=== PATIENT | female | born 1960 | race Caucasian/White ===

== ENCOUNTER → 2016-07-10 | Outpatient (CLI) | payer MEDICARE ==
--- NOTE | 2016-07-11 08:39 | RAD ---
DATE: July 10, 2016 EXAM: DIGITAL DIAGNOSTIC RT, BREAST RIGHT HISTORY: Follow-up of right breast cyst COMPARISON: January 16, 2016 right breast sonogram in diagnostic mammogram. This study was interpreted with the benefit of Computerized Aided Detection (CAD ). Diagnostic right-sided mammogram FINDINGS: The breast parenchyma is heterogeneously dense. There is a small nodule of the 6 clock position of the right breast which is stable. The breast parenchymal pattern is stable and no new clustering of pleomorphic microcalcifications are evident. Right breast sonography: High-resolution sonography of the 6:00 position of the right breast demonstrates a cyst measuring 7 mm in size. This is located 3 cm from the nipple. This corresponds to the same cyst seen previously and is unchanged in size. A few small internal echoes or debris are seen. Small satellite cyst is seen adjacent to it and is smaller in size in comparison to the previous study. In addition, 5 cm from the nipple at the 6 by position, a hypoechoic nodule is seen measuring 10 mm in size. There is mild sound through transmission. No corresponding mammographic abnormality is seen. This most likely represents a crenated cluster of cysts but recommend a 3 month follow-up sonogram of the right breast. IMPRESSION: Stable mammographic nodule of the 6 clock position of the right breast which corresponds to a cyst which is unchanged in size. However, the smaller satellite appendage like cyst has decreased in size sonographically. Recommend bilateral mammography in 6 months. There is another hypoechoic nodule at the 6:00 position of the right breast seen sonographically which measures 10 mm. This may represent a crenated cluster of cysts. Recommend 3 month follow-up sonogram of the right breast. BI-RADS CATEGORY: 3 PROBABLE BENIGN-SHORT TERM F/U RECOMMENDED FOLLOW-UP: 3 month sonogram of the right breast. Bilateral mammography in 6 months. PQRS compliance statement: Patient information was entered into a reminder system with a target due date 10/09/2016 for the next imaging study. Mammography is a sensitive method for finding small breast cancers, but it does not detect them all and is not a substitute for careful clinical examination. A negative mammogram does not negate a clinically suspicious finding and should not result in delay in biopsying a clinically suspicious abnormality. "Our facility is accredited by the [employer] Mammography Program." LOSD
== END | disposition home or self-care (01) ==
LOC: US 13:21
PROVIDERS: ATTEND Family Medicine
DX: R92.8 Other abnormal and inconclusive findings on diagnostic imaging of breast (principal)
CPT/HCPCS: 76641; G0206; 77065

== ENCOUNTER → 2016-10-14 | Outpatient (CLI) | payer MEDICARE ==
--- NOTE | 2016-10-14 13:05 | RAD ---
Indication 3 month follow-up. Targeted ultrasound of the right breast was performed. Comparison is made to an examination 07/10/2016. There is a well-defined hypoechoic 6 mm mass at the 6:00 position of the breasts 6 cm from the nipple similar to the previous exam compatible with a cyst. Slightly deeper at the 6:00 position, 5 cm from the nipple, is a heterogeneous mass measuring approximately 1 cm again unchanged in size or appearance. Follow-up mammography is suggested in December of this year. Follow-up ultrasound also advised. If the ultrasound findings are unchanged than a follow-up examination in January 17, 2018 is suggested. BI-RADS 3. Probably benign
== END | disposition home or self-care (01) ==
LOC: US 12:02
PROVIDERS: ATTEND Family Medicine
DX: R92.8 Other abnormal and inconclusive findings on diagnostic imaging of breast (principal)
CPT/HCPCS: 76641

== ENCOUNTER → 2017-01-14 | Outpatient (CLI) | payer MEDICARE ==
--- NOTE | 2017-01-14 09:20 | RAD ---
DATE: 01/14/2017 EXAM: DIGITAL DIAGNOSTIC BILATERAL HISTORY: Screening and follow-up COMPARISON: Screening examination 01/02/2016. Note is made of the diagnostic examinations targeted to the right breast 01/16/2016 and 07/10/2016. Note is additionally made of 3. Ultrasound examinations over the last year targeted to the right breast. This study was interpreted with the benefit of Computerized Aided Detection (CAD). FINDINGS: Breast Density: HETERO The breast parenchyma Is heterogeneiously dense, which could reduce sensitivity of mammography. Breast parenchyma level C. There has been little change compared to the previous screening exam. Well-defined small mass in the right breast appears unchanged IMPRESSION: Benign findings BI-RADS CATEGORY: 2 BENIGN FINDING(S) RECOMMENDED FOLLOW-UP: 12M 12 MONTH FOLLOW-UP PQRS compliance statement: Patient information was entered into a reminder system with a target due date 01/14/2018 for the next mammogram. Mammography is a sensitive method for finding small breast cancers, but it does not detect them all and is not a substitute for careful clinical examination. A negative mammogram does not negate a clinically suspicious finding and should not result in delay in biopsying a clinically suspicious abnormality. "Our facility is accredited by the [employer] Mammography [employer]."
== END | disposition home or self-care (01) ==
LOC: MAMMO 08:52
PROVIDERS: ATTEND Family Medicine
DX: Z09 Encounter for follow-up examination after completed treatment for conditions other than malignant neoplasm (principal); N63.0 Unspecified lump in unspecified breast; Z12.31 Encounter for screening mammogram for malignant neoplasm of breast
CPT/HCPCS: G0204; 77066

== ENCOUNTER → 2018-01-05 | Outpatient (CLI) | payer MEDICARE ==
[2017-09-10 09:09] VITALS: BP 124/63
[~2018-01-05] MED LIST: ATOR10TA60 PO; C,E,1CAP PO; CHOL500016 PO; FENO134C PO; FLUO40CA2 PO; IRON1TAB30 PO; LEVO25TA4 PO; LEVO75TA5 PO; LITH300C PO; METF500T16 PO; METH10TA2 PO; OMEG1CAP30 PO; OXYB10TA PO; PROAIR HFA8.5 GM INH; QUET200T79 PO; TRAZ150T49 PO; VALS160T3 PO; VALS40TA2 PO; VENL150T PO
--- NOTE | 2018-01-05 08:24 | RAD ---
DATE: 01/05/2018 EXAM: DIGITAL SCREEN BILAT W/CAD HISTORY: Routine screening COMPARISON: 01/14/2017 This study was interpreted with the benefit of Computerized Aided Detection (CAD). Breast Density: SCATTERED The breast parenchyma shows scattered fibroglandular densities. Breast parenchyma level B. FINDINGS: A smooth 9-10 mm nodule is again noted at the 6:00 location in the right breast. It is unchanged since previous studies dating back to 01/02/2016. No new or enlarging breast density is seen. Minimal benign type calcification is present. No suspicious microcalcifications have developed. IMPRESSION: Stable mammograms without evidence of malignancy. BI-RADS CATEGORY: 2 BENIGN FINDING(S) RECOMMENDED FOLLOW-UP: 12M 12 MONTH FOLLOW-UP PQRS compliance statement: Patient information was entered into a reminder system with a target due date for the next mammogram. Mammography is a sensitive method for finding small breast cancers, but it does not detect them all and is not a substitute for careful clinical examination. A negative mammogram does not negate a clinically suspicious finding and should not result in delay in biopsying a clinically suspicious abnormality. "Our facility is accredited by the [employer] Mammography [employer]."
== END | disposition home or self-care (01) ==
LOC: MAMMO 07:45
PROVIDERS: ATTEND Family Medicine
DX: Z12.31 Encounter for screening mammogram for malignant neoplasm of breast (principal)
CPT/HCPCS: 77067

== ENCOUNTER → 2019-01-21 | Outpatient (CLI) | payer MEDICARE ==
[2017-09-10 09:09] VITALS: BP 124/63
[~2019-01-21] MED LIST changes: +ALBU2.5V8 INH; -OXYB10TA PO; +OXYB10TA2 PO; -PROAIR HFA8.5 GM INH
--- NOTE | 2019-01-22 16:09 | RAD ---
DATE: 01/21/2019. EXAM: MAMMO SHANIKA SCREENING BILATERAL. HISTORY: Routine mammographic screening. COMPARISON: 01/05/2018. This study was interpreted with the benefit of Computerized Aided Detection (CAD). FINDINGS: Breast Density: SCATTERED The breast parenchyma shows scattered fibroglandular densities. Breast parenchyma level B.. A nodule inferiorly on the right has increased in size. Scattered calcifications are benign. There is no suspicious finding on the left. BI-RADS CATEGORY: 0 INCOMPLETE: NEEDS ADDITIONAL IMAGING EVALUATION AND/OR PRIOR MAMMOGRAMS FOR COMPARISON.. RECOMMENDED FOLLOW-UP: ADD ADDITIONAL IMAGING. 1. Sonographic evaluation of an increased nodule is recommended at the right 6:00 position. PQRS compliance statement: Patient information was entered into a reminder system with a target due date (now) for the next mammogram. Mammography is a sensitive method for finding small breast cancers, but it does not detect them all and is not a substitute for careful clinical examination. A negative mammogram does not negate a clinically suspicious finding and should not result in delay in biopsying a clinically suspicious abnormality. "Our facility is accredited by the [employer] Mammography Program."
== END | disposition home or self-care (01) ==
LOC: MAMMO 12:17
PROVIDERS: ATTEND Family Medicine
DX: Z12.31 Encounter for screening mammogram for malignant neoplasm of breast (principal); N64.89 Other specified disorders of breast; N63.10 Unspecified lump in the right breast, unspecified quadrant
CPT/HCPCS: 77063; 77067

== ENCOUNTER → 2019-01-28 | Outpatient (CLI) | payer MEDICARE ==
[2017-09-10 09:09] VITALS: BP 124/63
--- NOTE | 2019-01-28 11:53 | RAD ---
DATE: 01/28/2019 11:12 AM EXAM: BREAST RIGHT HISTORY: Call back right breast mass. COMPARISON: Ultrasound October 14, 2016. Mammogram January 21, 2019 and January 05, 2018 Targeted real-time right breast ultrasound. FINDINGS: Well-circumscribed cyst at the 6:00 position 3 cm from the nipple corresponding with mammogram. The cyst has increased in size compared to 2017 measures 0.9 x 0.7 cm compared to 0.6 cm previously. IMPRESSION: Right breast cyst, increased compared to 2017. BI-RADS CATEGORY: 2 BENIGN FINDING(S) RECOMMENDED FOLLOW-UP: 12M 12 MONTH FOLLOW-UP Annual screening mammography is recommended, unless clinically indicated sooner based on symptoms or change in physical exam. "Our facility is accredited by the [employer] Mammography Program."
== END | disposition home or self-care (01) ==
LOC: US 11:10
PROVIDERS: ATTEND Family Medicine
DX: N60.01 Solitary cyst of right breast (principal)
CPT/HCPCS: 76641

== ENCOUNTER → 2019-02-17 | Day surgery (SDC) | payer MEDICARE ==
[~2019-02-17] MED LIST changes: +IV RINGERS,LACTATED 1000ML 1,000 ML IV ONE; +LIDOCAINE 2% PF 5 ML VIAL. ONE; +LOSA50TA15 PO; +PANT20TA2 PO; +PROPOFOL 40 ML IV ONE; +ePHEDrine PF IN SALINE 50 MG/10 ML SYRINGE. IV ONE
[2019-02-17 08:47] VITALS: BP 131/68
--- NOTE | 2019-02-17 10:37 | HP ---
ADMIT DATE: REFERRING PHYSICIAN: Sana Solitario M.D. REASON: Positive Cologuard. HISTORY OF PRESENT ILLNESS: A 58-year-old female with past medical history significant for DVTs, depression, diabetes, hypertension, hyperlipidemia, and hypothyroidism, is seen for positive Cologuard. Bowel habits have been regular without diarrhea, but occasional constipation. Weight and appetite are stable. No visible bleeding was encountered. No family history of IBD or colon cancer is present. She has not undergone previous screening studies and without additional complaints. PAST MEDICAL HISTORY: Hypertension, hyperlipidemia, hypothyroidism, diabetes, anxiety, and history of DVTs. ALLERGIES: PENICILLIN, SULFA AND ASPIRIN. MEDICATIONS: Include albuterol, atorvastatin, vitamin D, fenofibrate, Prozac, iron, levothyroxine, lithium, losartan, metformin, methadone, omega 3, oxybutynin, pantoprazole, trazodone and venlafaxine. FAMILY HISTORY: Significant for hypertension with her mother. SOCIAL HISTORY: She is a nonsmoker, social drinker. PAST SURGICAL HISTORY: Status post appendectomy, back surgery, cholecystectomy, hysterectomy, and tubal ligation. REVIEW OF SYSTEMS: Per records. PHYSICAL EXAMINATION: GENERAL: Reveals a well-nourished, well-developed female. VITAL SIGNS: Temperature is 97, pulse 101, respirations 20. HEENT: Normocephalic, atraumatic head. Pupils and extraocular muscles are not tested. Sclerae anicteric. NECK: Supple. LUNGS: Clear. CARDIOVASCULAR: Reveals an S1, S2 without S3, S4 or appreciable murmur. ABDOMEN: Reveals a soft abdomen, normal bowel sounds, without appreciable hepatosplenomegaly. EXTREMITIES: Reveals no cyanosis, clubbing or edema. IMPRESSION: Positive Cologuard test, screening colonoscopy is recommended. Risks and benefits were discussed with the patient previously and is willing to proceed. CHAN NO MD DR: JULIO/danyelle JOB#: [id number] / [id number]
--- NOTE | 2019-02-18 11:07 | PATHOLOGY ---
[facility] Accession Number: [id number] . 01 Material submitted: . colon - TRANSVERSE COLON POLYP. Modifiers: transverse . 01 Clinical history: . Screening . 02 Diagnosis: Colon biopsies, transverse colon polyp: - Tubular adenoma. . ([facility]:mm; 02/18/2019) COUNT INCLUDES THE [facility] 02/18/2019 0929 Local . 02 Comment: There is no high grade dysplasia or evidence of malignancy. . ([facility]:mm; 02/18/2019) . 02 Electronically signed: . Scar Evangelista MD, Pathologist NPI- [id number] . 01 Gross description: . Received in formalin labeled "[place], Anay, transverse colon polyp," is a 0.8 x 0.5 x 0.4 cm polypoid piece of henry soft tissue. The margin is inked and the tissue is sectioned perpendicular to the margin and submitted entirely in cassette A1. Additionally received in the same container is a single segment of henry soft tissue measuring 0.3 cm in maximum dimension. The specimen is submitted entirely in cassette A2. ([facility]; 02/17/2019) TOB/TOB 02/17/2019 1736 Local . 02 Pathologist provided ICD-10: D12.3 . 02 CPT . 620171 Specimen Comment: A courtesy copy of this report has been sent to [phone], [phone] Specimen Comment: [id number] Specimen Comment: Report sent to / DR CONTRERAS Specimen Comment: A duplicate report has been generated due to demographic updates. Performed at: [address], [place], [place] [id number] MD Issa Albert MD Phone: [phone] Performed at: 02 [facility] [address] [place], [place] [id number] MD Scar Evangelista MD Phone: [phone]
== END ==
LOC: ENDOS 06:31
PROVIDERS: ATTEND Internal Medicine Gastroenterology
DX: R19.5 Other fecal abnormalities (principal); D12.3 Benign neoplasm of transverse colon; K64.0 First degree hemorrhoids; I10 Essential (primary) hypertension; E78.5 Hyperlipidemia, unspecified; E03.9 Hypothyroidism, unspecified; E11.9 Type 2 diabetes mellitus without complications; F41.9 Anxiety disorder, unspecified; Z86.718 Personal history of other venous thrombosis and embolism; Z88.1 Allergy status to other antibiotic agents; Z88.0 Allergy status to penicillin; Z88.8 Allergy status to other drugs, medicaments and biological substances; Z72.89 Other problems related to lifestyle; Z90.49 Acquired absence of other specified parts of digestive tract; Z90.710 Acquired absence of both cervix and uterus; Z98.51 Tubal ligation status; Z98.890 Other specified postprocedural states; Z79.84 Long term (current) use of oral hypoglycemic drugs
CPT/HCPCS: 45385; 88305; J0171; J2001; J2704; 45380

== ENCOUNTER → 2019-06-16 | Outpatient (CLI) | payer MEDICARE ==
[2019-02-17 08:47] VITALS: BP 131/68
[~2019-06-16] MED LIST changes: -IV RINGERS,LACTATED 1000ML 1,000 ML IV ONE; -LIDOCAINE 2% PF 5 ML VIAL. ONE; -OXYB10TA2 PO; +OXYB10TA26 PO; -PROPOFOL 40 ML IV ONE; -ePHEDrine PF IN SALINE 50 MG/10 ML SYRINGE. IV ONE
--- NOTE | 2019-06-16 13:49 | KCIC ---
LUMBAR SPINE WO CONTRAST Date: 06/16/2019 12:30 PM Indication: Lumbar radiculopathy Comparison: None. Technique: Multi-planar multi-weighted magnetic resonance imaging of the lumbar spine was performed without intravenous contrast using the standard lumbar spine protocol. FINDINGS: Postsurgical changes of interbody spacers at L2-3 and L3-4. Straightening of the lumbar lordosis. No acute fracture. Mild multilevel degenerative disc desiccation and disc height loss. Degenerative endplate changes at L1-2. The conus terminates at a normal level. No abnormal signal is seen within the visualized distal spinal cord. No clumping of intrathecal nerve roots. Sacral Tarlov cysts. Tiny bilateral renal cysts. T12-L1: No disc bulge. No facet arthropathy. No significant spinal stenosis or neural foraminal narrowing. L1-L2: Disc bulge. No facet arthropathy. No significant spinal stenosis or neural foraminal narrowing. L2-L3: No disc bulge. No facet arthropathy. No significant spinal stenosis or neural foraminal narrowing. L3-L4: No disc bulge. Mild facet arthropathy. No significant spinal stenosis or neural foraminal narrowing. L4-L5: Disc bulge with left far lateral protrusion. Severe right and moderate left facet arthropathy. Mild spinal stenosis. No significant neural foraminal narrowing. L5-S1: Disc bulge. Mild to moderate facet arthropathy. No significant spinal stenosis. Mild bilateral neural foraminal narrowing. IMPRESSION: Mild lumbar spondylosis, detailed level by level above. Electronically signed by: Avtar Quezada MD (06/16/2019 1:46 PM) [id number]
== END | disposition home or self-care (01) ==
LOC: KCIC MRI 12:10
PROVIDERS: ATTEND Family Medicine
DX: M47.26 Other spondylosis with radiculopathy, lumbar region (principal); M51.16 Intervertebral disc disorders with radiculopathy, lumbar region; M48.07 Spinal stenosis, lumbosacral region; M12.88 Other specific arthropathies, not elsewhere classified, other specified site; M53.3 Sacrococcygeal disorders, not elsewhere classified
CPT/HCPCS: 72148

== ENCOUNTER → 2020-01-05 | Outpatient (CLI) | payer MEDICARE ==
[2019-02-17 08:47] VITALS: BP 131/68
--- NOTE | 2020-01-05 17:34 | RAD ---
EXAMINATION: Bilateral screening mammogram, 01/05/2020 9:30 AM CLINICAL INDICATION: 59-year-old woman presenting for screening mammogram. COMPARISON: 01/21/2019, 01/21/2019, 01/11/2014 TECHNIQUE: Digital bilateral full-field CC and MLO views of the breasts were obtained. CAD was utilized. FINDINGS: The breasts contain scattered areas of fibroglandular density. A focal asymmetry correlating with a simple cyst in the right breast at 6:00 is unchanged. There is no new mass, suspicious calcification, or architectural distortion. IMPRESSION: 1. No mammographic evidence of malignancy. 2. BI-RADS 2-benign. 3. Routine annual screening mammogram is recommended in 1 year. The patient will receive a reminder letter by mail when she is due for her next exam. Electronically signed by: Martha Marroquin MD (01/05/2020 5:31 PM) [id number]
== END ==
LOC: MAMMO 09:17
PROVIDERS: ATTEND Family Medicine
DX: Z12.31 Encounter for screening mammogram for malignant neoplasm of breast (principal)
CPT/HCPCS: 77067

== ENCOUNTER 2020-04-07 18:58 | Inpatient (IN) | payer MEDICARE ==
[~2020-04-07] VITALS: Ht 162.6 cm; Wt 102.6 kg
[2020-04-07] MEDS ORDERED: ONDANSETRON PF 4 MG/2 ML VIAL. IVP ONE (19:15)
[2020-04-07] MEDS ORDERED: MORPHINE SULFATE 10 MG/ML VIAL. IV ONE (19:15)
[2020-04-07] MEDS ORDERED: IV NORMAL SALINE 1000ML BAG 1,000 ML IV ONE (19:15)
[2020-04-07 19:28] LABS: BASO % 0 % (0-3); EOS % 0 % (0-3); HEMOGLOBIN 14.1 g/dL (12.0-15.5); LYMPH # 0.8 x10^3/uL (1.0-4.8); LYMPH % 8 % (24-48); MEAN CORPUSCULAR HEMOGLOBIN 27 pg (25-35); MEAN CORPUSCULAR HGB CONC 33 g/dL (31-37); MEAN CORPUSCULAR VOLUME 81 fL (79-100); MONO # 0.8 x10^3/uL (0.0-1.1); MONO % 8 % (0-9); NEUT # 8.4 x10^3/uL (1.8-7.7); NEUT % 84 % (31-73); PLATELET COUNT 267 x10^3/uL (140-400); RED BLOOD COUNT 5.28 x10^6/uL (3.50-5.40); RED CELL DISTRIBUTION WIDTH 14.7 % (11.5-14.5)
[2020-04-07 19:35] LABS: CALCIUM 10.2 mg/dL (8.5-10.1); CREATININE 0.8 mg/dL (0.6-1.0); GFR 73.4; POTASSIUM 3.9 mmol/L (3.5-5.1)
[2020-04-07 19:41] LABS: ALBUMIN 3.4 g/dL (3.4-5.0); ALBUMIN/GLOBULIN RATIO 0.9 (1.0-1.7); TOTAL BILIRUBIN 0.4 mg/dL (0.2-1.0)
[2020-04-07] MEDS ORDERED: IOHEXOL 240 MG/ML 50ML VIAL. PO ONE (19:45)
[2020-04-07] MEDS ORDERED: IOHEXOL 300 MG/ML 100ML VIAL. IV ONE (19:45)
[2020-04-07] MEDS ORDERED: CONTRAST GIVEN. MC PRN (19:45)
--- NOTE | 2020-04-07 19:47 | ED.ADGEN ---
Past Medical History Past Medical History: Anxiety, Depression, Diabetes-Type II, High Cholesterol, Hypothyroid Additional Past Medical Histor: CHRONIC PAIN Past Surgical History: Appendectomy, Cholecystectomy, Hysterectomy, Other Additional Past Surgical Histo: BACK, R. EAR Smoking Status: Current Some Day Smoker Alcohol Use: Occasionally Drug Use: Marijuana General Adult EDM: Chief Complaint: ABDOMINAL PAIN HPI: HPI: Patient is a 59-year-old female who presents to the emergency room complaining of intermittent lower abdominal pain and bilateral back pain that started yesterday. She states that it comes on for long periods of time. She has had some nausea with dry heaving. She denies any diarrhea or constipation. She does not believe she is had fevers, chills, sweats, cough, shortness of breath, URI symptoms. She denies any urinary symptoms. She states the pain radiates across her entire lower abdomen. It feels like an aching cramping pain. She denies any blood in her stools. She has not tried to take anything at home for it. She has not eaten anything today due to pain. Review of Systems: Review of Systems: Complete ROS is negative unless otherwise documented in HPI Current Medications: Current Medications Medications (Trade) Dose Ordered Sig/Elsa Start Time Stop Time Status Last Admin Dose Admin Info (CONTRAST GIVEN -- Rx MONITORING) 1 each PRN DAILY PRN 04/07/20 19:45 04/09/20 19:44 Iohexol (Omnipaque 240 Mg/ml) 30 ml 1X ONCE 04/07/20 19:45 04/07/20 19:46 DC 04/07/20 19:51 30 ML Iohexol (Omnipaque 300 Mg/ml) 75 ml 1X ONCE 04/07/20 19:45 04/07/20 19:46 DC 04/07/20 21:07 75 ML Morphine Sulfate (Morphine Sulfate) 5 mg 1X ONCE 04/08/20 00:00 04/08/20 00:01 DC 04/07/20 23:55 5 MG Ondansetron HCl (Zofran) 4 mg 1X ONCE 04/07/20 19:15 04/07/20 19:19 DC 04/07/20 19:37 4 MG Sodium Chloride 1,000 ml @ 0 mls/hr Q0M ONCE 04/07/20 19:15 04/07/20 19:19 DC 04/07/20 19:15 5 MLS/HR Allergies: Allergies: Allergies Coded Allergies Type Severity Reaction Last Updated Verified Penicillins Allergy Intermediate 02/17/19 Yes Sulfa (Sulfonamide Antibiotics) Allergy Intermediate 02/17/19 Yes aspirin Allergy Intermediate RASH 02/17/19 Yes Physical Exam: PE: General: Awake, alert, mild distress, rocking in bed. Well Nourished, well hydrated. Cooperative HEENT: Atraumatic, EOMI, PERRL, airway patent, moist oral mucosa Neck: Supple, trachea midline Respiratory: CTA bilaterally, normal effort, no wheezing/crackles CV: RRR, no murmur, cap refill <2 GI: Soft, lower abdominal tenderness, bilateral CVA tenderness MSK: No obvious deformities Skin: Warm, dry, intact Neuro: A&O x3, speech NL, sensory and motor grossly intact, no focal deficits Psych: Normal affect, normal mood, not suicidal or homicidal Current Patient Data: Labs: Laboratory Tests Test 04/07/20 19:20 White Blood Count 10.0 x10^3/uL (4.0-11.0) Red Blood Count 5.28 x10^6/uL (3.50-5.40) Hemoglobin 14.1 g/dL (12.0-15.5) Hematocrit 43.0 % (36.0-47.0) Mean Corpuscular Volume 81 fL (79-100) Mean Corpuscular Hemoglobin 27 pg (25-35) Mean Corpuscular Hemoglobin Concent 33 g/dL (31-37) Red Cell Distribution Width 14.7 % (11.5-14.5) H Platelet Count 267 x10^3/uL (140-400) Neutrophils (%) (Auto) 84 % (31-73) H Lymphocytes (%) (Auto) 8 % (24-48) L Monocytes (%) (Auto) 8 % (0-9) Eosinophils (%) (Auto) 0 % (0-3) Basophils (%) (Auto) 0 % (0-3) Neutrophils # (Auto) 8.4 x10^3/uL (1.8-7.7) H Lymphocytes # (Auto) 0.8 x10^3/uL (1.0-4.8) L Monocytes # (Auto) 0.8 x10^3/uL (0.0-1.1) Eosinophils # (Auto) 0.0 x10^3/uL (0.0-0.7) Basophils # (Auto) 0.0 x10^3/uL (0.0-0.2) Sodium Level 136 mmol/L (136-145) Potassium Level 3.9 mmol/L (3.5-5.1) Chloride Level 102 mmol/L (98-107) Carbon Dioxide Level 27 mmol/L (21-32) Anion Gap 7 (6-14) Blood Urea Nitrogen 18 mg/dL (7-20) Creatinine 0.8 mg/dL (0.6-1.0) Estimated GFR (Cockcroft-Gault) 73.4 BUN/Creatinine Ratio 23 (6-20) H Glucose Level 207 mg/dL (70-99) H Calcium Level 10.2 mg/dL (8.5-10.1) H Total Bilirubin 0.4 mg/dL (0.2-1.0) Aspartate Amino Transferase (AST) 18 U/L (15-37) Alanine Aminotransferase (ALT) 34 U/L (14-59) Alkaline Phosphatase 41 U/L (46-116) L Total Protein 7.0 g/dL (6.4-8.2) Albumin 3.4 g/dL (3.4-5.0) Albumin/Globulin Ratio 0.9 (1.0-1.7) L Lipase 45 U/L (73-393) L Laboratory Tests 04/07/20 19:20 Laboratory Tests 04/07/20 19:20 Vital Signs: Vital Signs Date Time Temp Pulse Resp B/P (MAP) Pulse Ox O2 Delivery O2 Flow Rate FiO2 04/07/20 23:55 18 93 Room Air 04/07/20 19:24 98.4 93 138/94 98.4 EKG: EKG: [] Heart Score: Risk Factors: Risk Factors: DM, Current or recent (<one month) smoker, HTN, HLP, family history of CAD, obesity. Risk Scores: Score 0 - 3: 2.5% MACE over next 6 weeks - Discharge Home Score 4 - 6: 20.3% MACE over next 6 weeks - Admit for Clinical Observation Score 7 - 10: 72.7% MACE over next 6 weeks - Early Invasive Strategies Radiology/Procedures: Radiology/Procedures: [] Course & Med Decision Making: Course & Med Decision Making Pertinent Labs and Imaging studies reviewed. (See chart for details) Patient is a 59 year-old female with a history of hypertension who presents to the Emergency Room complaining of abdominal pain with nausea. On exam, patient appears uncomfortable with lower abdominal tenderness, however she is stable. Due to patients history, age, and exam work up will need to be done to evaluate for intra-abdominal pathology. Work up ordered includes CBC, CMP, lipase, UA, CT abdomen and pelvis. Patient's pain does not epigastric and a cardiac evaluation will not be needed for atypical pain. Ddx includes cystitis with pyelonephritis, colitis, diverticulitis, appendicitis. Work up was reviewed and patient has SBO. NG was placed. Surgery consult will be placed. Patient to be admitted Wei Disclaimer: Wei Disclaimer: This electronic medical record was generated, in whole or in part, using a voice recognition dictation system. Departure Departure Impression: Primary Impression: Small bowel obstruction Disposition: ADMITTED INPT THIS HOSP Condition: STABLE Referrals: JASS CONTRERAS MD (PCP) NATI MERCADO MD Apr 07, 2020 19:46
--- NOTE | 2020-04-07 21:51 | RAD ---
CT SCAN OF THE ABDOMEN AND PELVIS WITH IV CONTRAST. History: Abdominal pain Comparison:None. Procedure: Contiguous axial images of the abdomen and pelvis were performed after the administration of 75 cc o f Omni 300 IV contrast and oral contrast. Findings: The appendix is not seen. The gallbladder has been removed. There is multiple dilated fluid-filled lo ops of small bowel there is a few foci of air consistent with a feces sign in the small bowel. The di stal small bowel is collapsed and the colon has a more normal caliber. An exact transition zone is no t seen. Liver: Unremarkable Spleen: Unremarkable Pancreas: Unremarkable Adrenal Glands: Unremarkable Kidneys: Multiple small cysts bilaterally There is no mass or lymphadenopathy. There is no free air. There is no free fluid. The urinary bladder appears normal. There has been prior fusion of L2 on L3 and L3-L4 with intervertebral devices. Impression: Findings consistent with a mid partial small bowel obstruction. End impression PQRS Compliance Statement: One or more of the following individualized dose reduction techniques were utilized for this examinat ion: 1. Automated exposure control 2. Adjustment of the mA and/or kV according to patient size 3. Use of iterative reconstruction technique Electronically signed by: Renaldo Velásquez III, MD (04/07/2020 9:47 PM) [facility]
--- NOTE | 2020-04-07 23:52 | RAD ---
One view abdomen HISTORY: NG tube placement Portable upright AP view centered at the diaphragm There is an NG tube with its tip at the GE junction. There is no free air. There is patchy opacity in the left lung base. There is formed stool in the colon. IMPRESSION: 1. NG tube has its tip at the GE junction. 2. Left basilar infiltrate. 3. Constipation. Electronically signed by: Renaldo Velásquez III, MD (04/07/2020 11:43 PM) [facility]
[2020-04-08] VITALS (7 sets, daily range): BP systolic 125–154; BP diastolic 56–88
[2020-04-08] MEDS ORDERED: MORPHINE SULFATE 10 MG/ML VIAL. IV ONE
[2020-04-08] MEDS ORDERED: ONDANSETRON PF 4 MG/2 ML VIAL. IV PRN (00:15)
[2020-04-08] MEDS: IV NORMAL SALINE 1000ML BAG 1,000 ML IV SCH ×3 (00:15→20:57)
[2020-04-08] MEDS ORDERED: HALOPERIDOL LACTATE 5 MG/ML VIAL. IVP PRN (00:45)
--- NOTE | 2020-04-08 01:02 | NUR ---
Pt. arrived on unit from ED at 0032 by wheelchair. Pt. is alert and states her pain is okay at this time. Call light is within reach with bed in lowest position. Will continue to monitor.
[2020-04-08] MEDS: INSULIN LISPRO 300 UNITS/3 ML VIAL. SQ SCH ×2 (06:00→12:00)
[2020-04-08] MEDS: MORPHINE SULFATE 2 MG/ML VIAL. IV PRN ×4 (06:11→17:55)
[2020-04-08] MEDS: diphenhydrAMINE 50 MG/ML VIAL IVP PRN ×3 (07:53→20:56)
[2020-04-08] MEDS: ENOXAPARIN 40 MG/0.4 ML SYRINGE. SQ SCH (09:00)
[2020-04-08] MEDS: ONDANSETRON PF 4 MG/2 ML VIAL. IV PRN ×2 (10:26→17:55)
[2020-04-08] MEDS ORDERED: LABETALOL 20 MG/4 ML DISP.SYRIN. IVP PRN (15:00)
--- NOTE | 2020-04-08 16:13 | PDOC2 ---
CONSULT Date of Consult Date of Consult DATE: 04/08/20 TIME: 16:10 Reason for Consult Reason for Consult: SBO Referring Physician Referring Physician: Dr. Garcia Identification/Chief Complaint Chief Complaint abd pain Source Source: Chart review, Patient History of Present Illness Reason for Visit: 59 yo F with c/o abd pain over lower abd with associated N/V. Treated with NGT and reports feeling much better. Passing some flatus. Still with pain, however. Past Medical History Cardiovascular: HTN, Hyperlipidemia Pulmonary: Asthma CENTRAL NERVOUS SYSTEM: Other GI: No pertinent hx Heme/Onc: No pertinent hx, Other Hepatobiliary: No pertinent hx Psych: Depression Musculoskeletal: low back pain, Osteoarthritis Rheumatologic: No pertinent hx Infectious disease: No pertinent hx Renal/: Urinary Incontinence Endocrine: Diabetes, Hypothyroidism Past Surgical History Past Surgical History: Appendectomy, Cholecystectomy, Hysterectomy, Other Family History Family History: Heart Disease Social History ALCOHOL: none Drugs: None Lives: Alone Current Problem List Problem List Problems Medical Problems: (1) Small bowel obstruction Status: Acute Current Medications Current Medications Current Medications Ondansetron HCl (Zofran) 4 mg 1X ONCE IVP Last administered on 04/07/20at 19:37; Start 04/07/20 at 19:15; Stop 04/07/20 at 19:19; Status DC Morphine Sulfate (Morphine Sulfate) 5 mg 1X ONCE IV Last administered on 04/07/20at 19:38; Start 04/07/20 at 19:15; Stop 04/07/20 at 19:19; Status DC Sodium Chloride 1,000 ml @ 0 mls/hr Q0M ONCE IV Last administered on 04/07/20at 19:15; Start 04/07/20 at 19:15; Stop 04/07/20 at 19:19; Status DC Iohexol (Omnipaque 240 Mg/ml) 30 ml 1X ONCE PO Last administered on 04/07/20at 19:51; Start 04/07/20 at 19:45; Stop 04/07/20 at 19:46; Status DC Iohexol (Omnipaque 300 Mg/ml) 75 ml 1X ONCE IV Last administered on 04/07/20at 21:07; Start 04/07/20 at 19:45; Stop 04/07/20 at 19:46; Status DC Info (CONTRAST GIVEN -- Rx MONITORING) 1 each PRN DAILY PRN MC SEE COMMENTS; Start 04/07/20 at 19:45; Stop 04/09/20 at 19:44 Morphine Sulfate (Morphine Sulfate) 5 mg 1X ONCE IV Last administered on 04/07/20at 23:55; Start 04/08/20 at 00:00; Stop 04/08/20 at 00:01; Status DC Ondansetron HCl (Zofran) 4 mg PRN Q8HRS PRN IV NAUSEA/VOMITING; Start 04/08/20 at 00:15; Stop 04/08/20 at 00:44; Status DC Morphine Sulfate (Morphine Sulfate) 2 mg PRN Q2HR PRN IV PAIN Last administered on 04/08/20at 14:37; Start 04/08/20 at 00:15 Sodium Chloride 1,000 ml @ 100 mls/hr Q10H IV Last administered on 04/08/20at 1 0:27; Start 04/08/20 at 00:15; Stop 04/09/20 at 00:14 Ondansetron HCl (Zofran) 4 mg PRN Q4HRS PRN IV NAUSEA/VOMITING Last admini stered on 04/08/20at 10:26; Start 04/08/20 at 00:45 Insulin Human Lispro (HumaLOG) 0-7 UNITS Q6HRS SQ ; Start 04/08/20 at 06:00; St op 04/08/20 at 14:49; Status DC Dextrose (Dextrose 50%-Water Syringe) 12.5 gm PRN Q15MIN PRN IV SEE COMMENTS; Start 04/08/20 at 00:45 Enoxaparin Sodium (Lovenox 40mg Syringe) 40 mg Q24H SQ ; Start 04/08/20 at 09:00 Olanzapine (ZyPREXA ZYDIS) 5 mg PRN BID PRN PO ANXIETY / AGITATION; Start 04/08/20 at 00:45; Stop 04/08/20 at 14:49; Status DC Haloperidol Lactate (Haldol Inj) 5 mg PRN Q6HRS PRN IVP AGITATION; Start 04/08/20 at 00:45 Diphenhydramine HCl (Benadryl) 25 mg PRN Q6HRS PRN IVP ANXIETY/NAUSEA Last administered on 04/08/20at 14:37; Start 04/08/20 at 00:45 Labetalol HCl (Normodyne Iv Push) 10 mg PRN Q4HRS PRN IVP HYPERTENSION; Start 04/08/20 at 15:00 Lorazepam (Ativan Inj) 1 mg PRN Q4HRS PRN IVP ANXIETY / AGITATION; Start 04/08/20 at 15:00 Pantoprazole Sodium (PROTONIX VIAL for IV PUSH) 40 mg DAILYAC IVP ; Start 04/08/20 at 15:00 Active Scripts Active Proair Hfa Inhaler (Albuterol Sulfate) 8.5 Gm Hfa.aer.ad 2 Puff INH PRN Q6HRS PRN 30 Days Levothyroxine Sodium 25 Mcg Tablet 1 Tab PO DAILY Reported Protonix (Pantoprazole Sodium) 20 Mg Tablet.dr 20 Mg PO DAILY Losartan Potassium 50 Mg Tablet 50 Mg PO DAILY Fluoxetine Hcl 40 Mg Capsule 40 Mg PO DAILY Venlafaxine Hcl Er (Venlafaxine Hcl) 150 Mg Tab.er.24 150 Mg PO DAILY Metformin Hcl 500 Mg Tablet 500 Mg PO BIDWMEALS Methadone Hcl 10 Mg Tablet 10 Mg PO TID Atorvastatin Calcium 10 Mg Tablet 10 Mg PO HS [place] Carbonate 300 Mg Capsule 300 Mg PO DAILY Fenofibrate (Fenofibrate,Micronized) 134 Mg Capsule 134 Mg PO DAILY Quetiapine Fumarate ER (Quetiapine Fumarate) 200 Mg Tab.er.24h 200 Mg PO DAILY Trazodone Hcl 150 Mg Tablet 150 Mg PO HS Oxybutynin Chloride Er (Oxybutynin Chloride) 10 Mg Tab.er.24 10 Mg PO DAILY Ocuvite Adult 50 Plus Softgel (C,E,Zinc,Copper 11/Wwnrq0a/Lut) 1 Each Capsule 1 Each PO DAILY Fish Oil 1,000 Mg Softgel ([place]-3/Dha/Epa/Fish Oil) 1 Each Capsule 1 Each PO DAILY Vitamin D3 (Cholecalciferol (Vitamin D3)) 5,000 Unit Tablet 5,000 Unit PO DAILY Iron 100 Plus Tablet (Iron,Carbonyl/Vit C/Vit B12/Fa) 1 Each Tablet 1 Each PO Allergies Allergies: Coded Allergies: Penicillins (Verified Allergy, Intermediate, 02/17/19) Sulfa (Sulfonamide Antibiotics) (Verified Allergy, Intermediate, 02/17/19) aspirin (Verified Allergy, Intermediate, RASH, 02/17/19) ROS Gastrointestinal: Yes Nausea, Yes Vomiting, Yes Abdominal Pain Physical Exam General: Alert, Oriented X3, Cooperative, No acute distress HEENT: Atraumatic, Other (NGT in ) Abdomen: Soft, Other (obese, mild TTP) Extremities: No clubbing, No cyanosis Skin: No rashes, No breakdown Neuro: Normal speech, Sensation intact Psych/Mental Status: Mental status NL, Mood NL Vitals VITALS Vital Signs Date Time Temp Pulse Resp B/P (MAP) Pulse Ox O2 Delivery O2 Flow Rate FiO2 04/08/20 15:07 Room Air 04/08/20 14:46 98.4 81 18 154/87 (109) 91 98.4 Labs Labs Laboratory Tests Test 04/07/20 19:20 04/08/20 00:48 04/08/20 06:07 04/08/20 06:30 White Blood Count 10.0 x10^3/uL (4.0-11.0) Red Blood Count 5.28 x10^6/uL (3.50-5.40) Hemoglobin 14.1 g/dL (12.0-15.5) Hematocrit 43.0 % (36.0-47.0) Mean Corpuscular Volume 81 fL (79-100) Mean Corpuscular Hemoglobin 27 pg (25-35) Mean Corpuscular Hemoglobin Concent 33 g/dL (31-37) Red Cell Distribution Width 14.7 % (11.5-14.5) Platelet Count 267 x10^3/uL (140-400) Neutrophils (%) (Auto) 84 % (31-73) Lymphocytes (%) (Auto) 8 % (24-48) Monocytes (%) (Auto) 8 % (0-9) Eosinophils (%) (Auto) 0 % (0-3) Basophils (%) (Auto) 0 % (0-3) Neutrophils # (Auto) 8.4 x10^3/uL (1.8-7.7) Lymphocytes # (Auto) 0.8 x10^3/uL (1.0-4.8) Monocytes # (Auto) 0.8 x10^3/uL (0.0-1.1) Eosinophils # (Auto) 0.0 x10^3/uL (0.0-0.7) Basophils # (Auto) 0.0 x10^3/uL (0.0-0.2) Sodium Level 136 mmol/L (136-145) Potassium Level 3.9 mmol/L (3.5-5.1) Chloride Level 102 mmol/L (98-107) Carbon Dioxide Level 27 mmol/L (21-32) Anion Gap 7 (6-14) Blood Urea Nitrogen 18 mg/dL (7-20) Creatinine 0.8 mg/dL (0.6-1.0) Estimated GFR (Cockcroft-Gault) 73.4 BUN/Creatinine Ratio 23 (6-20) Glucose Level 207 mg/dL (70-99) Calcium Level 10.2 mg/dL (8.5-10.1) Total Bilirubin 0.4 mg/dL (0.2-1.0) Aspartate Amino Transf (AST/SGOT) 18 U/L (15-37) Alanine Aminotransferase (ALT/SGPT) 34 U/L (14-59) Alkaline Phosphatase 41 U/L (46-116) Total Protein 7.0 g/dL (6.4-8.2) Albumin 3.4 g/dL (3.4-5.0) Albumin/Globulin Ratio 0.9 (1.0-1.7) Lipase 45 U/L (73-393) Thyroid Stimulating Hormone (TSH) 0.670 uIU/mL (0.358-3.74) Glucose (Fingerstick) 129 mg/dL (70-99) 98 mg/dL (70-99) SARS-CoV-2 Antigen (Rapid) Negative (NEGATIVE) Test 04/08/20 12:17 Glucose (Fingerstick) 120 mg/dL (70-99) Laboratory Tests Test 04/07/20 19:20 04/08/20 00:48 04/08/20 06:07 04/08/20 06:30 White Blood Count 10.0 x10^3/uL (4.0-11.0) Red Blood Count 5.28 x10^6/uL (3.50-5.40) Hemoglobin 14.1 g/dL (12.0-15.5) Hematocrit 43.0 % (36.0-47.0) Mean Corpuscular Volume 81 fL (79-100) Mean Corpuscular Hemoglobin 27 pg (25-35) Mean Corpuscular Hemoglobin Concent 33 g/dL (31-37) Red Cell Distribution Width 14.7 % (11.5-14.5) Platelet Count 267 x10^3/uL (140-400) Neutrophils (%) (Auto) 84 % (31-73) Lymphocytes (%) (Auto) 8 % (24-48) Monocytes (%) (Auto) 8 % (0-9) Eosinophils (%) (Auto) 0 % (0-3) Basophils (%) (Auto) 0 % (0-3) Neutrophils # (Auto) 8.4 x10^3/uL (1.8-7.7) Lymphocytes # (Auto) 0.8 x10^3/uL (1.0-4.8) Monocytes # (Auto) 0.8 x10^3/uL (0.0-1.1) Eosinophils # (Auto) 0.0 x10^3/uL (0.0-0.7) Basophils # (Auto) 0.0 x10^3/uL (0.0-0.2) Sodium Level 136 mmol/L (136-145) Potassium Level 3.9 mmol/L (3.5-5.1) Chloride Level 102 mmol/L (98-107) Carbon Dioxide Level 27 mmol/L (21-32) Anion Gap 7 (6-14) Blood Urea Nitrogen 18 mg/dL (7-20) Creatinine 0.8 mg/dL (0.6-1.0) Estimated GFR (Cockcroft-Gault) 73.4 BUN/Creatinine Ratio 23 (6-20) Glucose Level 207 mg/dL (70-99) Calcium Level 10.2 mg/dL (8.5-10.1) Total Bilirubin 0.4 mg/dL (0.2-1.0) Aspartate Amino Transf (AST/SGOT) 18 U/L (15-37) Alanine Aminotransferase (ALT/SGPT) 34 U/L (14-59) Alkaline Phosphatase 41 U/L (46-116) Total Protein 7.0 g/dL (6.4-8.2) Albumin 3.4 g/dL (3.4-5.0) Albumin/Globulin Ratio 0.9 (1.0-1.7) Lipase 45 U/L (73-393) Thyroid Stimulating Hormone (TSH) 0.670 uIU/mL (0.358-3.74) Glucose (Fingerstick) 129 mg/dL (70-99) 98 mg/dL (70-99) SARS-CoV-2 Antigen (Rapid) Negative (NEGATIVE) Test 04/08/20 12:17 Glucose (Fingerstick) 120 mg/dL (70-99) Images Images CT c/w SBO, favor adhesions Assessment/Plan Assessment/Plan SBO appears to be resolving with conservative measures. Cont NGT and IVF. Thanks for consult! YASMIN PATIÑO MD Apr 08, 2020 16:13
[2020-04-08] MEDS: PANTOPRAZOLE IV PUSH 40 MG VIAL. IVP SCH (17:55)
--- NOTE | 2020-04-08 18:53 | PDOC1 ---
History and Physical Date of Admission Date of Admission April 08, 2020 Identification/Chief Complaint Chief Complaint My stomach hurts Source Source: Chart review, Patient History of Present Illness History of Present Illness Patient is a 59-year-old female with a past medical history of anxiety depression type 2 diabetes dyslipidemia who was in her usual state of health until more or less 24 hours when she started complaining of lower abdominal pain with radiation to the back no urinary symptoms no CVA tenderness no hematuria reported. Patient denies any dietary transgressions, no changes to her medications she denies sick contacts no travels outside this area. She denies any fever chills no diaphoresis no sensation of impending doom. Patient denies any cough shortness of breath or upper respiratory tract infections either. She does complain of constipation which resulted in the above-mentioned discomfort that she describes as a sharp sensation 10 out of 10 intensity at the worst moments currently at about the 4 time my evaluation. Patient denies alleviating factors and she did not self medicate at home. Her oral intake has certainly decreased due to her symptoms and she felt that she was getting dehydrated reason why she decided to come to the emergency department for further evaluation and treatment. Patient was found to have small bowel obstruction on imaging studies reason why we were asked to admit the patient for further evaluation and definitive treatment, no headache no blurred vision no dysphagia odynophagia no slurred speech no focal neurological deficit no peripheral edema all other complaints were voiced. Plan of care explained detail and all of her concerns addressed to the best of my abilities. Reassurance provided Past Medical History Cardiovascular: HTN, Hyperlipidemia Pulmonary: Asthma CENTRAL NERVOUS SYSTEM: Other GI: No pertinent hx Heme/Onc: No pertinent hx, Other Hepatobiliary: No pertinent hx Psych: Depression Rheumatologic: No pertinent hx Infectious disease: No pertinent hx Renal/: Urinary Incontinence Endocrine: Diabetes, Hypothyroidism Past Surgical History Past Surgical History: Appendectomy, Cholecystectomy, Hysterectomy, Other Family History Family History: Heart Disease Social History Smoke: No ALCOHOL: none Drugs: None Current Problem List Problem List Problems Medical Problems: (1) Small bowel obstruction Status: Acute Current Medications Current Medications Current Medications Medications (Trade) Dose Ordered Sig/Elsa Start Time Stop Time Status Last Admin Dose Admin Dextrose (Dextrose 50%-Water Syringe) 12.5 gm PRN Q15MIN PRN 04/08/20 00:45 Diphenhydramine HCl (Benadryl) 25 mg PRN Q6HRS PRN 04/08/20 00:45 04/08/20 14:37 25 MG Enoxaparin Sodium (Lovenox 40mg Syringe) 40 mg Q24H 04/08/20 09:00 Haloperidol Lactate (Haldol Inj) 5 mg PRN Q6HRS PRN 04/08/20 00:45 Info (CONTRAST GIVEN -- Rx MONITORING) 1 each PRN DAILY PRN 04/07/20 19:45 04/09/20 19:44 Insulin Human Lispro (HumaLOG) 0-7 UNITS Q6HRS 04/08/20 06:00 04/08/20 14:49 DC Iohexol (Omnipaque 240 Mg/ml) 30 ml 1X ONCE 04/07/20 19:45 04/07/20 19:46 DC 04/07/20 19:51 30 ML Iohexol (Omnipaque 300 Mg/ml) 75 ml 1X ONCE 04/07/20 19:45 04/07/20 19:46 DC 04/07/20 21:07 75 ML Labetalol HCl (Normodyne Iv Push) 10 mg PRN Q4HRS PRN 04/08/20 15:00 Lorazepam (Ativan Inj) 1 mg PRN Q4HRS PRN 04/08/20 15:00 Morphine Sulfate (Morphine Sulfate) 2 mg PRN Q2HR PRN 04/08/20 00:15 04/08/20 17:55 2 MG Olanzapine (ZyPREXA ZYDIS) 5 mg PRN BID PRN 04/08/20 00:45 04/08/20 14:49 DC Ondansetron HCl (Zofran) 4 mg PRN Q4HRS PRN 04/08/20 00:45 04/08/20 17:55 4 MG Pantoprazole Sodium (PROTONIX VIAL for IV PUSH) 40 mg DAILYAC 04/08/20 15:00 04/08/20 17:55 40 MG Sodium Chloride 1,000 ml @ 100 mls/hr Q10H 04/08/20 00:15 04/09/20 00:14 04/08/20 10:27 100 MLS/HR Allergies Allergies Allergies Coded Allergies Type Severity Reaction Last Updated Verified Penicillins Allergy Intermediate 02/17/19 Yes Sulfa (Sulfonamide Antibiotics) Allergy Intermediate 02/17/19 Yes aspirin Allergy Intermediate RASH 02/17/19 Yes ROS Review of System Review of systems pertinent as per HPI otherwise 14 point review of system is negative Physical Exam Physical Exam General: Awake, alert, mild distress, rocking in bed. Well Nourished, well hydrated. Cooperative HEENT: Atraumatic, EOMI, PERRL, airway patent, moist oral mucosa Neck: Supple, trachea midline Respiratory: CTA bilaterally, normal effort, no wheezing/crackles CV: RRR, no murmur, cap refill <2 GI: Soft, lower abdominal tenderness, bilateral CVA tenderness MSK: No obvious deformities Skin: Warm, dry, intact Neuro: A&O x3, speech NL, sensory and motor grossly intact, no focal deficits Psych: Normal affect, normal mood, not suicidal or homicidals Vitals Vitals Vital Signs Date Time Temp Pulse Resp B/P (MAP) Pulse Ox O2 Delivery O2 Flow Rate FiO2 04/08/20 18:25 Room Air 04/08/20 14:46 98.4 81 18 154/87 (109) 91 98.4 Labs Labs Laboratory Tests Test 04/07/20 19:20 04/08/20 00:48 04/08/20 06:07 04/08/20 06:30 White Blood Count 10.0 x10^3/uL (4.0-11.0) Red Blood Count 5.28 x10^6/uL (3.50-5.40) Hemoglobin 14.1 g/dL (12.0-15.5) Hematocrit 43.0 % (36.0-47.0) Mean Corpuscular Volume 81 fL (79-100) Mean Corpuscular Hemoglobin 27 pg (25-35) Mean Corpuscular Hemoglobin Concent 33 g/dL (31-37) Red Cell Distribution Width 14.7 % (11.5-14.5) Platelet Count 267 x10^3/uL (140-400) Neutrophils (%) (Auto) 84 % (31-73) Lymphocytes (%) (Auto) 8 % (24-48) Monocytes (%) (Auto) 8 % (0-9) Eosinophils (%) (Auto) 0 % (0-3) Basophils (%) (Auto) 0 % (0-3) Neutrophils # (Auto) 8.4 x10^3/uL (1.8-7.7) Lymphocytes # (Auto) 0.8 x10^3/uL (1.0-4.8) Monocytes # (Auto) 0.8 x10^3/uL (0.0-1.1) Eosinophils # (Auto) 0.0 x10^3/uL (0.0-0.7) Basophils # (Auto) 0.0 x10^3/uL (0.0-0.2) Sodium Level 136 mmol/L (136-145) Potassium Level 3.9 mmol/L (3.5-5.1) Chloride Level 102 mmol/L (98-107) Carbon Dioxide Level 27 mmol/L (21-32) Anion Gap 7 (6-14) Blood Urea Nitrogen 18 mg/dL (7-20) Creatinine 0.8 mg/dL (0.6-1.0) Estimated GFR (Cockcroft-Gault) 73.4 BUN/Creatinine Ratio 23 (6-20) Glucose Level 207 mg/dL (70-99) Calcium Level 10.2 mg/dL (8.5-10.1) Total Bilirubin 0.4 mg/dL (0.2-1.0) Aspartate Amino Transf (AST/SGOT) 18 U/L (15-37) Alanine Aminotransferase (ALT/SGPT) 34 U/L (14-59) Alkaline Phosphatase 41 U/L (46-116) Total Protein 7.0 g/dL (6.4-8.2) Albumin 3.4 g/dL (3.4-5.0) Albumin/Globulin Ratio 0.9 (1.0-1.7) Lipase 45 U/L (73-393) Thyroid Stimulating Hormone (TSH) 0.670 uIU/mL (0.358-3.74) Glucose (Fingerstick) 129 mg/dL (70-99) 98 mg/dL (70-99) SARS-CoV-2 Antigen (Rapid) Negative (NEGATIVE) Test 04/08/20 12:17 Glucose (Fingerstick) 120 mg/dL (70-99) Laboratory Tests Test 04/07/20 19:20 04/08/20 00:48 04/08/20 06:07 04/08/20 06:30 White Blood Count 10.0 x10^3/uL (4.0-11.0) Red Blood Count 5.28 x10^6/uL (3.50-5.40) Hemoglobin 14.1 g/dL (12.0-15.5) Hematocrit 43.0 % (36.0-47.0) Mean Corpuscular Volume 81 fL (79-100) Mean Corpuscular Hemoglobin 27 pg (25-35) Mean Corpuscular Hemoglobin Concent 33 g/dL (31-37) Red Cell Distribution Width 14.7 % (11.5-14.5) Platelet Count 267 x10^3/uL (140-400) Neutrophils (%) (Auto) 84 % (31-73) Lymphocytes (%) (Auto) 8 % (24-48) Monocytes (%) (Auto) 8 % (0-9) Eosinophils (%) (Auto) 0 % (0-3) Basophils (%) (Auto) 0 % (0-3) Neutrophils # (Auto) 8.4 x10^3/uL (1.8-7.7) Lymphocytes # (Auto) 0.8 x10^3/uL (1.0-4.8) Monocytes # (Auto) 0.8 x10^3/uL (0.0-1.1) Eosinophils # (Auto) 0.0 x10^3/uL (0.0-0.7) Basophils # (Auto) 0.0 x10^3/uL (0.0-0.2) Sodium Level 136 mmol/L (136-145) Potassium Level 3.9 mmol/L (3.5-5.1) Chloride Level 102 mmol/L (98-107) Carbon Dioxide Level 27 mmol/L (21-32) Anion Gap 7 (6-14) Blood Urea Nitrogen 18 mg/dL (7-20) Creatinine 0.8 mg/dL (0.6-1.0) Estimated GFR (Cockcroft-Gault) 73.4 BUN/Creatinine Ratio 23 (6-20) Glucose Level 207 mg/dL (70-99) Calcium Level 10.2 mg/dL (8.5-10.1) Total Bilirubin 0.4 mg/dL (0.2-1.0) Aspartate Amino Transf (AST/SGOT) 18 U/L (15-37) Alanine Aminotransferase (ALT/SGPT) 34 U/L (14-59) Alkaline Phosphatase 41 U/L (46-116) Total Protein 7.0 g/dL (6.4-8.2) Albumin 3.4 g/dL (3.4-5.0) Albumin/Globulin Ratio 0.9 (1.0-1.7) Lipase 45 U/L (73-393) Thyroid Stimulating Hormone (TSH) 0.670 uIU/mL (0.358-3.74) Glucose (Fingerstick) 129 mg/dL (70-99) 98 mg/dL (70-99) SARS-CoV-2 Antigen (Rapid) Negative (NEGATIVE) Test 04/08/20 12:17 Glucose (Fingerstick) 120 mg/dL (70-99) Images Images IMAGING REPORT Signed PATIENT: OBDULIO HODGES ACCOUNT: [id number] : 1960 LOCATION: ER AGE: 59 SEX: F EXAM STATUS: REG ER ORD. PHYSICIAN: NATI MERCADO MD REASON: abdominal pain, elderly, OMNI 240 30 ML PO, OMNI 300, 75 ML IV PROCEDURE: CT ABD PELV W/ORAL&IV CONTRAST CT SCAN OF THE ABDOMEN AND PELVIS WITH IV CONTRAST. History: Abdominal pain Comparison:None. Procedure: Contiguous axial images of the abdomen and pelvis were performed after the administration of 75 cc of Omni 300 IV contrast and oral contrast. Findings: The appendix is not seen. The gallbladder has been removed. There is multiple dilated fluid-filled loops of small bowel there is a few foci of air consistent with a feces sign in the small bowel. The distal small bowel is collapsed and the colon has a more normal caliber. An exact transition zone is not seen. Liver: Unremarkable Spleen: Unremarkable Pancreas: Unremarkable Adrenal Glands: Unremarkable Kidneys: Multiple small cysts bilaterally There is no mass or lymphadenopathy. There is no free air. There is no free fluid. The urinary bladder appears normal. There has been prior fusion of L2 on L3 and L3-L4 with intervertebral devices. Impression: Findings consistent with a mid partial small bowel obstruction. End impression PQRS Compliance Statement: One or more of the following individualized dose reduction techniques were utilized for this examination: 1. Automated exposure control 2. Adjustment of the mA and/or kV according to patient size 3. Use of iterative reconstruction technique Electronically signed by: Renaldo Velásquez III, MD (04/07/2020 9:47 PM) [facility] VTE Prophylaxis Ordered VTE Prophylaxis Devices: No VTE Pharmacological Prophylaxi: Yes Assessment/Plan Assessment/Plan Small bowel obstruction Left basilar infiltrate Constipation History of diabetes mellitus type 2 History of dyslipidemia Hypothyroidism which is acquired History of anxiety and depression Hyperglycemia of no clinical significance Plan N.p.o. 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 Further recommendations based on the clinical course DVT prophylaxis with SCDs Justifications for Admission Other Justification KURT DURHAM MD Apr 08, 2020 18:52
[2020-04-08] MEDS: traZODone 50 MG TABLET. PO SCH (21:00)
[2020-04-08] MEDS: METHADONE 10 MG TABLET. PO SCH (21:00)
[2020-04-08] MEDS: VENLAFAXINE 50 MG TABLET. PO SCH (21:00)
[2020-04-08] MEDS ORDERED: ATORVASTATIN CALCIUM 10 MG TABLET. PO SCH (21:00)
[2020-04-09] MEDS: ONDANSETRON PF 4 MG/2 ML VIAL. IV PRN ×3 (01:10→20:44)
[2020-04-09 03:00] VITALS: BP 144/69
[2020-04-09] MEDS: LEVOTHYROXINE 25 MCG TABLET. PO SCH (05:15)
[2020-04-09 07:00] VITALS: BP 182/73
[2020-04-09] MEDS: MULTIVITAMIN I-VITE TABLET. PO SCH (07:08)
[2020-04-09] MEDS: OMEGA-3 FATTY ACIDS/FISH OIL 1,000 MG CAPSULE. PO SCH (07:08)
[2020-04-09] MEDS: metFORMIN 500 MG TABLET PO SCH ×2 (07:08→07:10)
[2020-04-09] MEDS: CHOLECALCIFEROL (VITAMIN D3) 5,000 UNIT CAPSULE PO SCH (07:08)
[2020-04-09] MEDS: OXYBUTYNIN CHLORIDE 5 MG TABLET PO SCH ×2 (07:08→20:43)
[2020-04-09] MEDS: diphenhydrAMINE 50 MG/ML VIAL IVP PRN ×2 (07:56→15:35)
[2020-04-09] MEDS: FLUoxetine HCL 20 MG CAPSULE PO SCH (07:57)
[2020-04-09] MEDS: PANTOPRAZOLE IV PUSH 40 MG VIAL. IVP SCH (07:57)
[2020-04-09] MEDS: LITHIUM CARBONATE ER 300 MG TABLET.ER PO SCH (07:58)
[2020-04-09] MEDS: VENLAFAXINE 50 MG TABLET. PO SCH ×3 (07:58→20:43)
[2020-04-09] MEDS: METHADONE 10 MG TABLET. PO SCH ×3 (07:58→20:43)
[2020-04-09] MEDS: LOSARTAN POTASSIUM 50 MG TABLET. PO SCH (07:58)
[2020-04-09] MEDS: QUEtiapine 100 MG TABLET. PO SCH (07:58)
[2020-04-09] MEDS: IV NORMAL SALINE 1000ML BAG 1,000 ML IV SCH ×2 (07:59→17:30)
[2020-04-09] MEDS: ENOXAPARIN 40 MG/0.4 ML SYRINGE. SQ SCH (08:12)
[2020-04-09] MEDS ORDERED: FENOFIBRATE,MICRONIZED 134 MG CAPSULE PO SCH (09:00)
[2020-04-09] MEDS ORDERED: PANTOPRAZOLE SODIUM 20 MG PO SCH (09:00)
--- NOTE | 2020-04-09 10:02 | PDOC ---
PROGRESS NOTES Date of Service: DATE: 04/09/20 TIME: 09:56 Chief Complaint Chief Complaint Assessment/Plan Small bowel obstruction Left basilar infiltrate Constipation History of diabetes mellitus type 2 History of dyslipidemia Hypothyroidism which is acquired History of anxiety and depression Hyperglycemia of no clinical significance Plan N.p.o. May resume home meds as per financial consultant hold metformin, statin will start empiric docycycline for infiltrate noted on KUB will repeat chest x ray today pending results may discontinue doxycycline if not needed. Continue with NG tube Reassess in the a.m. Further recommendations based on the clinical course DVT prophylaxis with SCDs History of Present Illness History of Present Illness History of Present Illness Patient is a 59-year-old female with a past medical history of anxiety depression type 2 diabetes dyslipidemia who was in her usual state of health u ntil more or less 24 hours when she started complaining of lower abdominal pain with radiation to the back no urinary symptoms no CVA tenderness no hematuria reported. Patient denies any dietary transgressions, no changes to her medications she denies sick contacts no travels outside this area. She denies any fever chills no diaphoresis no sensation of impending doom. Patient denies any cough shortness of breath or upper respiratory tract infections either. She does complain of constipation which resulted in the above-mentioned discomfort that she describes as a sharp sensation 10 out of 10 intensity at the worst moments currently at about the 4 time my evaluation. Patient denies alleviating factors and she did not self medicate at home. Her oral intake has certainly decreased due to her symptoms and she felt that she was getting dehydrated reason why she decided to come to the emergency department for further evaluation and treatment. Patient was found to have small bowel obstruction on imaging studies reason why we were asked to admit the patient for further evaluation and definitive treatment, no headache no blurred vision no dysphagia odynophagia no slurred speech no focal neurological deficit no peripheral edema all other complaints were voiced. Plan of care explained detail and all of her concerns addressed to the best of my abilities. Reassurance provided 04/09: No acute events reported overnight, case discussed with nursing staff patient in no acute distress no complaints during my visit clamped NG tube at the present time. I have encouraged more activity especially now that her NG tube is clamped for med administration. Reassurance provided we will repeat an x-ray today to determine whether indeed this infiltrate noted on KUB is playing a significant role. Will start doxycycline empirically and de-escalate if need be Vitals Vitals Vital Signs Date Time Temp Pulse Resp B/P (MAP) Pulse Ox O2 Delivery O2 Flow Rate FiO2 04/09/20 07:58 76 182/73 04/09/20 07:00 98.4 20 93 Room Air 98.4 Physical Exam General: Alert, Oriented X3, Cooperative, No acute distress Abdomen: Soft, Other (obese, mild TTP) Extremities: No clubbing, No cyanosis Skin: No rashes, No breakdown Labs LABS Laboratory Tests Test 04/08/20 12:17 04/08/20 18:55 04/08/20 20:26 04/09/20 00:00 Glucose (Fingerstick) 120 mg/dL (70-99) 111 mg/dL (70-99) 104 mg/dL (70-99) 104 mg/dL (70-99) Test 04/09/20 06:55 Glucose (Fingerstick) 108 mg/dL (70-99) Review of Systems Review of Systems Review of systems pertinent as per HPI otherwise 14 point review of system is negative Assessment and Plan Assessmemt and Plan Problems Medical Problems: (1) Small bowel obstruction Status: Acute Comment Review of Relevant I have reviewed the following items luiz (where applicable) has been applied. Labs Laboratory Tests Test 04/07/20 19:20 04/08/20 00:48 04/08/20 06:07 04/08/20 06:30 White Blood Count 10.0 x10^3/uL (4.0-11.0) Red Blood Count 5.28 x10^6/uL (3.50-5.40) Hemoglobin 14.1 g/dL (12.0-15.5) Hematocrit 43.0 % (36.0-47.0) Mean Corpuscular Volume 81 fL (79-100) Mean Corpuscular Hemoglobin 27 pg (25-35) Mean Corpuscular Hemoglobin Concent 33 g/dL (31-37) Red Cell Distribution Width 14.7 % (11.5-14.5) Platelet Count 267 x10^3/uL (140-400) Neutrophils (%) (Auto) 84 % (31-73) Lymphocytes (%) (Auto) 8 % (24-48) Monocytes (%) (Auto) 8 % (0-9) Eosinophils (%) (Auto) 0 % (0-3) Basophils (%) (Auto) 0 % (0-3) Neutrophils # (Auto) 8.4 x10^3/uL (1.8-7.7) Lymphocytes # (Auto) 0.8 x10^3/uL (1.0-4.8) Monocytes # (Auto) 0.8 x10^3/uL (0.0-1.1) Eosinophils # (Auto) 0.0 x10^3/uL (0.0-0.7) Basophils # (Auto) 0.0 x10^3/uL (0.0-0.2) Sodium Level 136 mmol/L (136-145) Potassium Level 3.9 mmol/L (3.5-5.1) Chloride Level 102 mmol/L (98-107) Carbon Dioxide Level 27 mmol/L (21-32) Anion Gap 7 (6-14) Blood Urea Nitrogen 18 mg/dL (7-20) Creatinine 0.8 mg/dL (0.6-1.0) Estimated GFR (Cockcroft-Gault) 73.4 BUN/Creatinine Ratio 23 (6-20) Glucose Level 207 mg/dL (70-99) Calcium Level 10.2 mg/dL (8.5-10.1) Total Bilirubin 0.4 mg/dL (0.2-1.0) Aspartate Amino Transf (AST/SGOT) 18 U/L (15-37) Alanine Aminotransferase (ALT/SGPT) 34 U/L (14-59) Alkaline Phosphatase 41 U/L (46-116) Total Protein 7.0 g/dL (6.4-8.2) Albumin 3.4 g/dL (3.4-5.0) Albumin/Globulin Ratio 0.9 (1.0-1.7) Lipase 45 U/L (73-393) Thyroid Stimulating Hormone (TSH) 0.670 uIU/mL (0.358-3.74) Glucose (Fingerstick) 129 mg/dL (70-99) 98 mg/dL (70-99) SARS-CoV-2 Antigen (Rapid) Negative (NEGATIVE) Test 04/08/20 12:17 04/08/20 18:55 04/08/20 20:26 04/09/20 00:00 Glucose (Fingerstick) 120 mg/dL (70-99) 111 mg/dL (70-99) 104 mg/dL (70-99) 104 mg/dL (70-99) Test 04/09/20 06:55 Glucose (Fingerstick) 108 mg/dL (70-99) Laboratory Tests Test 04/08/20 12:17 04/08/20 18:55 04/08/20 20:26 04/09/20 00:00 Glucose (Fingerstick) 120 mg/dL (70-99) 111 mg/dL (70-99) 104 mg/dL (70-99) 104 mg/dL (70-99) Test 04/09/20 06:55 Glucose (Fingerstick) 108 mg/dL (70-99) Medications Current Medications Ondansetron HCl (Zofran) 4 mg 1X ONCE IVP Last administered on 04/07/20at 19:37; Start 04/07/20 at 19:15; Stop 04/07/20 at 19:19; Status DC Morphine Sulfate (Morphine Sulfate) 5 mg 1X ONCE IV Last administered on 04/07/20at 19:38; Start 04/07/20 at 19:15; Stop 04/07/20 at 19:19; Status DC Sodium Chloride 1,000 ml @ 0 mls/hr Q0M ONCE IV Last administered on 04/07/20at 19:15; Start 04/07/20 at 19:15; Stop 04/07/20 at 19:19; Status DC Iohexol (Omnipaque 240 Mg/ml) 30 ml 1X ONCE PO Last administered on 04/07/20at 19:51; Start 04/07/20 at 19:45; Stop 04/07/20 at 19:46; Status DC Iohexol (Omnipaque 300 Mg/ml) 75 ml 1X ONCE IV Last administered on 04/07/20at 21:07; Start 04/07/20 at 19:45; Stop 04/07/20 at 19:46; Status DC Info (CONTRAST GIVEN -- Rx MONITORING) 1 each PRN DAILY PRN MC SEE COMMENTS; Start 04/07/20 at 19:45; Stop 04/09/20 at 19:44 Morphine Sulfate (Morphine Sulfate) 5 mg 1X ONCE IV Last administered on 04/07/20at 23:55; Start 04/08/20 at 00:00; Stop 04/08/20 at 00:01; Status DC Ondansetron HCl (Zofran) 4 mg PRN Q8HRS PRN IV NAUSEA/VOMITING; Start 04/08/20 at 00:15; Stop 04/08/20 at 00:44; Status DC Morphine Sulfate (Morphine Sulfate) 2 mg PRN Q2HR PRN IV PAIN Last administered on 04/08/20at 17:55; Start 04/08/20 at 00:15 Sodium Chloride 1,000 ml @ 100 mls/hr Q10H IV Last administered on 04/08/20at 20:57; Start 04/08/20 at 00:15; Stop 04/09/20 at 00:14; Status DC Ondansetron HCl (Zofran) 4 mg PRN Q4HRS PRN IV NAUSEA/VOMITING Last administered on 04/09/20at 01:10; Start 04/08/20 at 00:45 Insulin Human Lispro (HumaLOG) 0-7 UNITS Q6HRS SQ ; Start 04/08/20 at 06:00; Stop 04/08/20 at 14:49; Status DC Dextrose (Dextrose 50%-Water Syringe) 12.5 gm PRN Q15MIN PRN IV SEE COMMENTS; Start 04/08/20 at 00:45 Enoxaparin Sodium (Lovenox 40mg Syringe) 40 mg Q24H SQ Last administered on 04/09/20at 08:12; Start 04/08/20 at 09:00 Olanzapine (ZyPREXA ZYDIS) 5 mg PRN BID PRN PO ANXIETY / AGITATION; Start 04/08/20 at 00:45; Stop 04/08/20 at 14:49; Status DC Haloperidol Lactate (Haldol Inj) 5 mg PRN Q6HRS PRN IVP AGITATION; Start 04/08/20 at 00:45 Diphenhydramine HCl (Benadryl) 25 mg PRN Q6HRS PRN IVP ANXIETY/NAUSEA Last administered on 04/09/20at 07:56; Start 04/08/20 at 00:45 Labetalol HCl (Normodyne Iv Push) 10 mg PRN Q4HRS PRN IVP HYPERTENSION; Start 04/08/20 at 15:00 Lorazepam (Ativan Inj) 1 mg PRN Q4HRS PRN IVP ANXIETY / AGITATION; Start 04/08/20 at 15:00 Pantoprazole Sodium (PROTONIX VIAL for IV PUSH) 40 mg DAILYAC IVP Last administered on 04/09/20at 07:57; Start 04/08/20 at 15:00 Atorvastatin Calcium (Lipitor) 10 mg HS PO ; Start 04/08/20 at 21:00 Fenofibrate (Lofibra) 134 mg DAILY PO ; Start 04/09/20 at 09:00 Levothyroxine Sodium (Synthroid) 25 mcg DAILY06 PO ; Start 04/09/20 at 06:00 Losartan Potassium (Cozaar) 50 mg DAILY PO Last administered on 04/09/20at 07:58 ; Start 04/09/20 at 09:00 Metformin HCl (Glucophage) 500 mg BIDWMEALS PO ; Start 04/09/20 at 08:00 Methadone HCl (Dolophine) 10 mg TID PO Last administered on 04/09/20at 07:58; Start 04/08/20 at 21:00 Multivitamins/ Minerals (I-Faisal) 1 tab DAILY PO ; Start 04/09/20 at 09:00 Vitamin D (Vitamin D3) 5,000 unit DAILY PO ; Start 04/09/20 at 09:00 Fluoxetine HCl (PROzac) 40 mg DAILY PO Last administered on 04/09/20at 07:57; Start 04/09/20 at 09:00 [place] Carbonate (Lithobid) 300 mg DAILY PO Last administered on 04/09/20at 07:58; Start 04/09/20 at 09:00 Fish Oil (Fish Oil) 1,000 mg DAILY PO ; Start 04/09/20 at 09:00 Oxybutynin Chloride (Ditropan) 5 mg BID PO ; Start 04/09/20 at 09:00 Non-Formulary Medication (Pantoprazole Sodium (Protonix)) 20 mg DAILY PO ; Start 04/09/20 at 09:00; Status UNV Quetiapine Fumarate (SEROquel) 200 mg DAILY PO Last administered on 04/09/20at 07:58; Start 04/09/20 at 09:00 Trazodone HCl (Desyrel) 150 mg HS PO ; Start 04/08/20 at 21:00 Venlafaxine HCl (Effexor) 50 mg TID PO Last administered on 04/09/20at 07:58; Start 04/08/20 at 21:00 Sodium Chloride 1,000 ml @ 100 mls/hr Q10H IV Last administered on 04/09/20at 07:59; Start 04/09/20 at 07:30 Active Scripts Active Proair Hfa Inhaler (Albuterol Sulfate) 8.5 Gm Hfa.aer.ad 2 Puff INH PRN Q6HRS PRN 30 Days Levothyroxine Sodium 25 Mcg Tablet 1 Tab PO DAILY Reported Protonix (Pantoprazole Sodium) 20 Mg Tablet.dr 20 Mg PO DAILY Losartan Potassium 50 Mg Tablet 50 Mg PO DAILY Fluoxetine Hcl 40 Mg Capsule 40 Mg PO DAILY Venlafaxine Hcl Er (Venlafaxine Hcl) 150 Mg Tab.er.24 150 Mg PO DAILY Metformin Hcl 500 Mg Tablet 500 Mg PO BIDWMEALS Methadone Hcl 10 Mg Tablet 10 Mg PO TID Atorvastatin Calcium 10 Mg Tablet 10 Mg PO HS [place] Carbonate 300 Mg Capsule 300 Mg PO DAILY Fenofibrate (Fenofibrate,Micronized) 134 Mg Capsule 134 Mg PO DAILY Quetiapine Fumarate ER (Quetiapine Fumarate) 200 Mg Tab.er.24h 200 Mg PO DAILY Trazodone Hcl 150 Mg Tablet 150 Mg PO HS Oxybutynin Chloride Er (Oxybutynin Chloride) 10 Mg Tab.er.24 10 Mg PO DAILY Ocuvite Adult 50 Plus Softgel (C,E,Zinc,Copper 11/Kxkxn2j/Lut) 1 Each Capsule 1 Each PO DAILY Fish Oil 1,000 Mg Softgel (Tyro-3/Dha/Epa/Fish Oil) 1 Each Capsule 1 Each PO DAILY Vitamin D3 (Cholecalciferol (Vitamin D3)) 5,000 Unit Tablet 5,000 Unit PO DAILY Iron 100 Plus Tablet (Iron,Carbonyl/Vit C/Vit B12/Fa) 1 Each Tablet 1 Each PO Vitals/I & O Vital Sign - Last 24 Hours 04/08/20 04/08/20 04/08/20 04/08/20 10:26 10:56 11:03 14:37 Temp 98.0 98.0 Pulse 73 Resp 18 B/P (MAP) 125/56 (79) Pulse Ox 93 O2 Delivery Room Air Room Air Room Air Room Air 04/08/20 04/08/20 04/08/20 04/08/20 14:46 15:07 17:55 18:25 Temp 98.4 98.4 Pulse 81 Resp 18 B/P (MAP) 154/87 (109) Pulse Ox 91 O2 Delivery Room Air Room Air Room Air Room Air 04/08/20 04/08/20 04/08/20 04/09/20 19:00 20:00 23:00 03:00 Temp 98.1 99.0 98.5 98.1 99.0 98.5 Pulse 80 82 98 Resp 18 18 18 B/P (MAP) 144/74 (97) 142/71 (94) 144/69 (94) Pulse Ox 91 90 90 O2 Delivery Room Air Room Air Room Air Room Air 04/09/20 04/09/20 07:00 07:58 Temp 98.4 98.4 Pulse 76 76 Resp 20 B/P (MAP) 182/73 (109) 182/73 Pulse Ox 93 O2 Delivery Room Air Intake and Output 04/08/20 04/08/20 04/09/20 15:00 23:00 07:00 Output Total 150 ml 150 ml 275 ml Balance -150 ml -150 ml -275 ml Justicifation of Admission Dx: Justifications for Admission: Justification of Admission Dx: Yes Comments: Small bowel obstruction KURT DURHAM MD Apr 09, 2020 10:02
--- NOTE | 2020-04-09 10:52 | RAD ---
AP chest. HISTORY: Infiltrate AP view was taken of the chest. NG tube stops in the distal esophagus. There is mild atelectasis or i nfiltrate along the diaphragm in the left lower lobe. There is no effusion. IMPRESSION: 1. NG tube stops near the GE junction. 2. Mild atelectasis or infiltrate left lower lobe. Electronically signed by: Jose L Sharpe MD (04/09/2020 10:48 AM) [facility]
[2020-04-09 11:00] VITALS: BP 124/70
[2020-04-09] MEDS: DOXYCYCLINE HYCLATE 100 MG in IV DEXTROSE 5% 100ML 100 ML IV SCH ×2 (11:54→20:45)
[2020-04-09 15:00] VITALS: BP 125/70
--- NOTE | 2020-04-09 15:22 | PDOC ---
SURGICAL PROGRESS NOTE DATE: 04/09/20 TIME: 15:21 Subjective Pt with c/o cont persistent nausea, no emesis, min flatus, min pain Vital Signs Vital Signs Date Time Temp Pulse Resp B/P (MAP) Pulse Ox O2 Delivery O2 Flow Rate FiO2 04/09/20 15:00 98.1 69 19 125/70 (88) 94 Room Air 98.1 I&O Intake and Output 04/09/20 07:00 Output Total 575 ml Balance -575 ml Output Gastric Drainage Total 575 ml # Voids 3 General: Alert, Oriented X3, Cooperative, No acute distress Abdomen: Soft, No tenderness, Other (obese) Labs Laboratory Tests Test 04/07/20 19:20 04/08/20 00:48 04/08/20 06:07 04/08/20 06:30 White Blood Count 10.0 x10^3/uL (4.0-11.0) Red Blood Count 5.28 x10^6/uL (3.50-5.40) Hemoglobin 14.1 g/dL (12.0-15.5) Hematocrit 43.0 % (36.0-47.0) Mean Corpuscular Volume 81 fL (79-100) Mean Corpuscular Hemoglobin 27 pg (25-35) Mean Corpuscular Hemoglobin Concent 33 g/dL (31-37) Red Cell Distribution Width 14.7 % (11.5-14.5) Platelet Count 267 x10^3/uL (140-400) Neutrophils (%) (Auto) 84 % (31-73) Lymphocytes (%) (Auto) 8 % (24-48) Monocytes (%) (Auto) 8 % (0-9) Eosinophils (%) (Auto) 0 % (0-3) Basophils (%) (Auto) 0 % (0-3) Neutrophils # (Auto) 8.4 x10^3/uL (1.8-7.7) Lymphocytes # (Auto) 0.8 x10^3/uL (1.0-4.8) Monocytes # (Auto) 0.8 x10^3/uL (0.0-1.1) Eosinophils # (Auto) 0.0 x10^3/uL (0.0-0.7) Basophils # (Auto) 0.0 x10^3/uL (0.0-0.2) Sodium Level 136 mmol/L (136-145) Potassium Level 3.9 mmol/L (3.5-5.1) Chloride Level 102 mmol/L (98-107) Carbon Dioxide Level 27 mmol/L (21-32) Anion Gap 7 (6-14) Blood Urea Nitrogen 18 mg/dL (7-20) Creatinine 0.8 mg/dL (0.6-1.0) Estimated GFR (Cockcroft-Gault) 73.4 BUN/Creatinine Ratio 23 (6-20) Glucose Level 207 mg/dL (70-99) Calcium Level 10.2 mg/dL (8.5-10.1) Total Bilirubin 0.4 mg/dL (0.2-1.0) Aspartate Amino Transf (AST/SGOT) 18 U/L (15-37) Alanine Aminotransferase (ALT/SGPT) 34 U/L (14-59) Alkaline Phosphatase 41 U/L (46-116) Total Protein 7.0 g/dL (6.4-8.2) Albumin 3.4 g/dL (3.4-5.0) Albumin/Globulin Ratio 0.9 (1.0-1.7) Lipase 45 U/L (73-393) Thyroid Stimulating Hormone (TSH) 0.670 uIU/mL (0.358-3.74) Glucose (Fingerstick) 129 mg/dL (70-99) 98 mg/dL (70-99) SARS-CoV-2 Antigen (Rapid) Negative (NEGATIVE) Test 04/08/20 12:17 04/08/20 18:55 04/08/20 20:26 04/09/20 00:00 Glucose (Fingerstick) 120 mg/dL (70-99) 111 mg/dL (70-99) 104 mg/dL (70-99) 104 mg/dL (70-99) Test 04/09/20 06:55 04/09/20 11:29 Glucose (Fingerstick) 108 mg/dL (70-99) 114 mg/dL (70-99) Laboratory Tests Test 04/08/20 18:55 04/08/20 20:26 04/09/20 00:00 04/09/20 06:55 Glucose (Fingerstick) 111 mg/dL (70-99) 104 mg/dL (70-99) 104 mg/dL (70-99) 108 mg/dL (70-99) Test 04/09/20 11:29 Glucose (Fingerstick) 114 mg/dL (70-99) Problem List Problems Medical Problems: (1) Small bowel obstruction Status: Acute Assessment/Plan SBO will plan SBFT in AM. Justicifation of Admission Dx: Justifications for Admission: Justification of Admission Dx: Yes YASMIN PATIÑO MD Apr 09, 2020 15:22
[2020-04-09 19:00] VITALS: BP 142/77
[2020-04-09] MEDS: MORPHINE SULFATE 2 MG/ML VIAL. IV PRN (20:03)
[2020-04-09] MEDS: traZODone 50 MG TABLET. PO SCH (20:43)
[2020-04-09 22:56] VITALS: BP 134/73
[2020-04-10 03:00] VITALS: BP 124/79
[2020-04-10] MEDS: IV NORMAL SALINE 1000ML BAG 1,000 ML IV SCH ×3 (03:18→23:30)
[2020-04-10] MEDS: diphenhydrAMINE 50 MG/ML VIAL IVP PRN (04:02)
[2020-04-10] MEDS: LEVOTHYROXINE 25 MCG TABLET. PO SCH (05:48)
[2020-04-10] MEDS: MORPHINE SULFATE 2 MG/ML VIAL. IV PRN ×3 (05:50→23:30)
[2020-04-10] MEDS: DEXTROSE 50% 25 GM / 50ML DISP.SYRIN. IV PRN (06:18)
[2020-04-10 07:00] VITALS: BP 132/65
[2020-04-10] MEDS: PANTOPRAZOLE IV PUSH 40 MG VIAL. IVP SCH (07:45)
[2020-04-10] MEDS ORDERED: IOHEXOL 300 MG/ML 100ML VIAL. PO ONE (08:45)
--- NOTE | 2020-04-10 08:56 | PDOC ---
ROQUE BATES Frank BENCH MOL[employer] APPRENTICE 04/10/20 0856: SURGICAL PROGRESS NOTE DATE: 04/10/20 TIME: 08:54 Subjective pain is better no flatus Vital Signs Vital Signs Date Time Temp Pulse Resp B/P (MAP) Pulse Ox O2 Delivery O2 Flow Rate FiO2 04/10/20 07:00 98.4 71 18 132/65 (87) 93 Room Air 98.4 I&O Intake and Output 04/10/20 07:00 Intake Total 60 ml Output Total 70 ml Balance -10 ml Intake Oral 60 ml Output Gastric Drainage Total 70 ml # Voids 2 General: Alert, Oriented X3, Cooperative Abdomen: Soft, Other (ND) Labs Laboratory Tests Test 04/08/20 12:17 04/08/20 18:55 04/08/20 20:26 04/09/20 00:00 Glucose (Fingerstick) 120 mg/dL (70-99) 111 mg/dL (70-99) 104 mg/dL (70-99) 104 mg/dL (70-99) Test 04/09/20 06:55 04/09/20 11:29 04/09/20 18:12 04/09/20 23:59 Glucose (Fingerstick) 108 mg/dL (70-99) 114 mg/dL (70-99) 105 mg/dL (70-99) 83 mg/dL (70-99) Test 04/10/20 06:02 04/10/20 06:22 Glucose (Fingerstick) 65 mg/dL (70-99) 120 mg/dL (70-99) Laboratory Tests Test 04/09/20 11:29 04/09/20 18:12 04/09/20 23:59 04/10/20 06:02 Glucose (Fingerstick) 114 mg/dL (70-99) 105 mg/dL (70-99) 83 mg/dL (70-99) 65 mg/dL (70-99) Test 04/10/20 06:22 Glucose (Fingerstick) 120 mg/dL (70-99) Problem List Problems Medical Problems: (1) Small bowel obstruction Status: Acute Assessment/Plan SBFT planned today Justicifation of Admission Dx: Justifications for Admission: Justification of Admission Dx: Yes YASMIN PATIÑO MD 04/10/20 3395: SURGICAL PROGRESS NOTE Assessment/Plan Pt seen and examined. Agree with Ms. Bates's note Pt feels better with a lot loose stools abd soft, ND, NTTP SBFT looks good will clamp NGT and plan d/c it in AM ROQUE BATES APRN Apr 10, 2020 08:56 YASMIN PATIÑO MD Apr 10, 2020 19:05
[2020-04-10] MEDS: CHOLECALCIFEROL (VITAMIN D3) 5,000 UNIT CAPSULE PO SCH (09:00)
[2020-04-10] MEDS: MULTIVITAMIN I-VITE TABLET. PO SCH (09:00)
[2020-04-10] MEDS ORDERED: CONTRAST GIVEN. MC PRN (09:00)
[2020-04-10] MEDS: OMEGA-3 FATTY ACIDS/FISH OIL 1,000 MG CAPSULE. PO SCH (09:00)
[2020-04-10] MEDS: DOXYCYCLINE HYCLATE 100 MG in IV DEXTROSE 5% 100ML 100 ML IV SCH ×2 (10:53→21:33)
[2020-04-10] MEDS: OXYBUTYNIN CHLORIDE 5 MG TABLET PO SCH ×2 (10:54→21:33)
[2020-04-10] MEDS: FLUoxetine HCL 20 MG CAPSULE PO SCH (10:54)
[2020-04-10] MEDS: ENOXAPARIN 40 MG/0.4 ML SYRINGE. SQ SCH (10:54)
[2020-04-10] MEDS: LOSARTAN POTASSIUM 50 MG TABLET. PO SCH (10:55)
[2020-04-10] MEDS: METHADONE 10 MG TABLET. PO SCH ×3 (10:55→21:32)
[2020-04-10] MEDS: QUEtiapine 100 MG TABLET. PO SCH (10:56)
[2020-04-10] MEDS: LITHIUM CARBONATE ER 300 MG TABLET.ER PO SCH (10:56)
[2020-04-10] MEDS: VENLAFAXINE 50 MG TABLET. PO SCH ×3 (10:56→21:33)
[2020-04-10 11:00] VITALS: BP 133/80
--- NOTE | 2020-04-10 11:10 | NUR ---
SW following. Discussed with RN, pt from home, room air, NPO, NG - clamped, COVID-19 negative. Pt had a small bowel series this morning. RN advised no SW needs at this time. SW will continue to follow.
[2020-04-10 15:00] VITALS: BP 150/86
--- NOTE | 2020-04-10 15:00 | PDOC ---
[employer] PROGRESS NOTE Date of Service DOS: DATE: 04/10/20 TIME: 14:59 Chief Complaint Chief Complaint Assessment/Plan Small bowel obstruction Left basilar infiltrate Constipation History of diabetes mellitus type 2 History of dyslipidemia Hypothyroidism which is acquired History of anxiety and depression Hyperglycemia of no clinical significance Plan N.p.o. May resume home meds as per surgical endoscopist hold metformin, statin will start empiric docycycline for infiltrate noted on KUB will repeat chest x ray today pending results may discontinue doxycycline if not needed. Continue with NG tube Reassess in the a.m. Further recommendations based on the clinical course DVT prophylaxis with SCDs History of Present Illness History of Present Illness History of Present Illness Patient is a 59-year-old female with a past medical history of anxiety depression type 2 diabetes dyslipidemia who was in her usual state of health until more or less 24 hours when she started complaining of lower abdominal pain with radiation to the back no urinary symptoms no CVA tenderness no hematuria reported. Patient denies any dietary transgressions, no changes to her medications she denies sick contacts no travels outside this area. She denies any fever chills no diaphoresis no sensation of impending doom. Patient denies any cough shortness of breath or upper respiratory tract infections either. She does complain of constipation which resulted in the above-mentioned discomfort that she describes as a sharp sensation 10 out of 10 intensity at the worst moments currently at about the 4 time my evaluation. Patient denies alleviating factors and she did not self medicate at home. Her oral intake has certainly decreased due to her symptoms and she felt that she was getting dehydrated reason why she decided to come to the emergency department for further evaluation and treatment. Patient was found to have small bowel obstruction on imaging studies reason why we were asked to admit the patient for further evaluation and definitive treatment, no headache no blurred vision no dysphagia odynophagia no slurred speech no focal neurological deficit no peripheral edema all other complaints were voiced. Plan of care explained detail and all of her concerns addressed to the best of my abilities. Reassurance provided 04/09: No acute events reported overnight, case discussed with nursing staff patient in no acute distress no complaints during my visit clamped NG tube at the present time. I have encouraged more activity especially now that her NG tube is clamped for med administration. Reassurance provided we will repeat an x-ray today to determine whether indeed this infiltrate noted on KUB is playing a significant role. Will start doxycycline empirically and de-escalate if need be 04/10/2020 No acute events overnight. Patient is ambulating to the bathroom on her own. NG tube still in place and clamped. Bile appearing fluid in the wall suction canister. No signs of bleeding. Patient's chart, labs, images were reviewed and discussed with RN Vitals/I&O Vitals/I&O: Vital Signs Date Time Temp Pulse Resp B/P (MAP) Pulse Ox O2 Delivery O2 Flow Rate FiO2 04/10/20 11:00 98.2 87 18 133/80 (97) 93 Room Air 98.2 I & O 04/09/20 04/09/20 04/10/20 15:00 23:00 07:00 Intake Total 60 ml Output Total 50 ml 20 ml Balance -50 ml -20 ml 60 ml Physical Exam General: Alert, Oriented X3, Cooperative Abdomen: Soft, Other (ND) Extremities: No clubbing, No cyanosis Skin: No rashes, No breakdown Labs Labs: Laboratory Tests Test 04/09/20 18:12 04/09/20 23:59 04/10/20 06:02 04/10/20 06:22 Glucose (Fingerstick) 105 mg/dL (70-99) 83 mg/dL (70-99) 65 mg/dL (70-99) 120 mg/dL (70-99) Assessment and Plan Assessmemt and Plan Problems Medical Problems: (1) Small bowel obstruction Status: Acute Comment Review of Relevant I have reviewed the following items luiz (where applicable) has been applied. Medications: Current Medications Medications (Trade) Dose Ordered Sig/Elsa Route PRN Reason Start Time Stop Time Status Last Admin Dose Admin Iohexol (Omnipaque 300 Mg/ml) 400 ml 1X ONCE PO 04/10/20 08:45 04/10/20 08:46 DC 04/10/20 09:09 Justifications for Admission Other Justification AZEEM FLORES MD Apr 10, 2020 15:00
[2020-04-10] MEDS: ONDANSETRON PF 4 MG/2 ML VIAL. IV PRN ×2 (15:22→23:30)
--- NOTE | 2020-04-10 16:42 | RAD ---
EXAM: SMALL BOWEL FOLLOW-THROUGH. HISTORY: Small bowel obstruction. COMPARISON: Abdomen pelvis CT with oral and IV contrast of 04/07/2020. FINDINGS: A health unit clerk image was obtained. Water-soluble contrast material was administered via indwelling enteric tube and followed in its course through the stomach, small bowel and proximal colon with flu oroscopy and plain radiographs. 0 fluoroscopic images were obtained. Fluoroscopy time 0 seconds. The health unit clerk image demonstrates a residual amount of enteric contrast in the large bowel from the CT sca n of a few days prior. After discussing the patient's referring surgeon, decision was made to proceed with the examination, accepting any diagnostic limitations imposed by the residual enteric contrast still present. There are no distended small bowel loops. No strictures are seen. The small bowel fold pattern is unr emarkable. Transit time was normal at 1 hour 30 minutes (normal <2 hours.) IMPRESSION: 1. No evidence of small bowel obstruction with passage of enteric contrast into the large bowel withi n 2 hours. Electronically signed by: Jorge Pepper MD (04/10/2020 4:40 PM) [id number]
[2020-04-10 19:00] VITALS: BP 121/76
[2020-04-10] MEDS: LACTOBACILLUS RHAMNOSUS GG 1 CAPSULE. PO SCH (21:32)
[2020-04-10] MEDS: traZODone 50 MG TABLET. PO SCH (21:32)
[2020-04-10 23:19] VITALS: BP 129/66
[2020-04-11 03:14] VITALS: BP 128/85
[2020-04-11] MEDS: LEVOTHYROXINE 25 MCG TABLET. PO SCH (05:53)
[2020-04-11] MEDS: DEXTROSE 50% 25 GM / 50ML DISP.SYRIN. IV PRN (06:04)
[2020-04-11 07:00] VITALS: BP 131/61
--- NOTE | 2020-04-11 08:56 | PDOC ---
JANAROQUE Marie GAS APPLIANCE INSTALLER 04/11/20 0856: SURGICAL PROGRESS NOTE DATE: 04/11/20 TIME: 08:55 Subjective tolerating clears having stools Vital Signs Vital Signs Date Time Temp Pulse Resp B/P (MAP) Pulse Ox O2 Delivery O2 Flow Rate FiO2 04/11/20 07:00 98.0 72 18 131/61 (84) 96 Room Air 98.0 General: Alert, Oriented X3, Cooperative HEENT: Other (ng) Abdomen: Soft, No tenderness Labs Laboratory Tests Test 04/09/20 11:29 04/09/20 18:12 04/09/20 23:59 04/10/20 06:02 Glucose (Fingerstick) 114 mg/dL (70-99) 105 mg/dL (70-99) 83 mg/dL (70-99) 65 mg/dL (70-99) Test 04/10/20 06:22 04/11/20 00:02 04/11/20 05:58 04/11/20 06:20 Glucose (Fingerstick) 120 mg/dL (70-99) 74 mg/dL (70-99) 64 mg/dL (70-99) 123 mg/dL (70-99) Laboratory Tests Test 04/11/20 00:02 04/11/20 05:58 04/11/20 06:20 Glucose (Fingerstick) 74 mg/dL (70-99) 64 mg/dL (70-99) 123 mg/dL (70-99) Problem List Problems Medical Problems: (1) Small bowel obstruction Status: Acute Assessment/Plan remove NG advance diet Justicifation of Admission Dx: Justifications for Admission: Justification of Admission Dx: Yes YASMIN PATIÑO MD 04/11/20 1027: SURGICAL PROGRESS NOTE Assessment/Plan Pt seen and examined. Agree with Ms. Holder's note Pt feels better, passing stools abd soft as above. ROQUE HOLDER APRN Apr 11, 2020 08:56 YASMIN PATIÑO MD Apr 11, 2020 10:27
[2020-04-11 09:32] LABS: CALCIUM 9.5 mg/dL (8.5-10.1); CREATININE 0.6 mg/dL (0.6-1.0); GFR 102.3; MAGNESIUM 1.7 mg/dL (1.8-2.4); PHOSPHORUS 2.8 mg/dL (2.6-4.7); POTASSIUM 3.7 mmol/L (3.5-5.1)
--- NOTE | 2020-04-11 09:44 | NUR ---
SW following. Discussed with RN, pt from home, room air, NG being removed and diet being advanced. RN advised no SW needs at this time. SW will continue to follow.
[2020-04-11 11:00] VITALS: BP 129/57
[2020-04-11] MEDS: VENLAFAXINE 50 MG TABLET. PO SCH ×3 (11:59→20:43)
[2020-04-11] MEDS: LACTOBACILLUS RHAMNOSUS GG 1 CAPSULE. PO SCH ×2 (11:59→20:43)
[2020-04-11] MEDS: LITHIUM CARBONATE ER 300 MG TABLET.ER PO SCH (12:00)
[2020-04-11] MEDS: METHADONE 10 MG TABLET. PO SCH ×3 (12:00→20:43)
[2020-04-11] MEDS: OXYBUTYNIN CHLORIDE 5 MG TABLET PO SCH ×2 (12:00→20:43)
[2020-04-11] MEDS: LOSARTAN POTASSIUM 50 MG TABLET. PO SCH (12:01)
[2020-04-11] MEDS: PANTOPRAZOLE IV PUSH 40 MG VIAL. IVP SCH (12:01)
[2020-04-11] MEDS: OMEGA-3 FATTY ACIDS/FISH OIL 1,000 MG CAPSULE. PO SCH (12:01)
[2020-04-11] MEDS: CHOLECALCIFEROL (VITAMIN D3) 5,000 UNIT CAPSULE PO SCH (12:11)
[2020-04-11] MEDS: FLUoxetine HCL 20 MG CAPSULE PO SCH (12:11)
[2020-04-11] MEDS: QUEtiapine 100 MG TABLET. PO SCH (12:11)
[2020-04-11] MEDS: ENOXAPARIN 40 MG/0.4 ML SYRINGE. SQ SCH (12:12)
--- NOTE | 2020-04-11 14:48 | PDOC ---
[facility] PROGRESS NOTE Date of Service DOS: DATE: 04/11/20 TIME: 14:47 Chief Complaint Chief Complaint Assessment/Plan Small bowel obstruction Left basilar infiltrate Constipation History of diabetes mellitus type 2 History of dyslipidemia Hypothyroidism which is acquired History of anxiety and depression Hyperglycemia of no clinical significance Plan N.p.o. May resume home meds as per surgical scrub tech hold metformin, statin will start empiric docycycline for infiltrate noted on KUB will repeat chest x ray today pending results may discontinue doxycycline if not needed. Continue with NG tube Reassess in the a.m. Further recommendations based on the clinical course DVT prophylaxis with SCDs History of Present Illness History of Present Illness History of Present Illness Patient is a 59-year-old female with a past medical history of anxiety depression type 2 diabetes dyslipidemia who was in her usual state of health until more or less 24 hours when she started complaining of lower abdominal pain with radiation to the back no urinary symptoms no CVA tenderness no hematuria reported. Patient denies any dietary transgressions, no changes to her medications she denies sick contacts no travels outside this area. She denies any fever chills no diaphoresis no sensation of impending doom. Patient denies any cough shortness of breath or upper respiratory tract infections either. She does complain of constipation which resulted in the above-mentioned discomfort that she describes as a sharp sensation 10 out of 10 intensity at the worst moments currently at about the 4 time my evaluation. Patient denies alleviating factors and she did not self medicate at home. Her oral intake has certainly decreased due to her symptoms and she felt that she was getting dehydrated reason why she decided to come to the emergency department for further evaluation and treatment. Patient was found to have small bowel obstruction on imaging studies reason why we were asked to admit the patient for further evaluation and definitive treatment, no headache no blurred vision no dysphagia odynophagia no slurred speech no focal neurological deficit no peripheral edema all other complaints were voiced. Plan of care explained detail and all of her concerns addressed to the best of my abilities. Reassurance provided 04/09: No acute events reported overnight, case discussed with nursing staff patient in no acute distress no complaints during my visit clamped NG tube at the present time. I have encouraged more activity especially now that her NG tube is clamped for med administration. Reassurance provided we will repeat an x-ray today to determine whether indeed this infiltrate noted on KUB is playing a significant role. Will start doxycycline empirically and de-escalate if need be 04/10/2020 No acute events overnight. Patient is ambulating to the bathroom on her own. NG tube still in place and clamped. Bile appearing fluid in the wall suction canister. No signs of bleeding. Patient's chart, labs, images were reviewed and discussed with RN 04/11/2020 No acute events overnight. Patient seen and examined bedside. NG tube will be removed this morning and add patient is passing stools and also passing flatus. Advance to clear liquid diet and advance as tolerated. Patient's chart, labs, images were reviewed and discussed with RN Vitals/I&O Vitals/I&O: Vital Signs Date Time Temp Pulse Resp B/P (MAP) Pulse Ox O2 Delivery O2 Flow Rate FiO2 04/11/20 12:01 129/57 04/11/20 11:00 98.1 74 18 91 Room Air 98.1 Physical Exam General: Alert, Oriented X3, Cooperative Abdomen: Soft, No tenderness Extremities: No clubbing, No cyanosis Skin: No rashes, No breakdown Labs Labs: Laboratory Tests Test 04/11/20 00:02 04/11/20 05:58 04/11/20 06:20 04/11/20 08:35 Glucose (Fingerstick) 74 mg/dL (70-99) 64 mg/dL (70-99) 123 mg/dL (70-99) Sodium Level 143 mmol/L (136-145) Potassium Level 3.7 mmol/L (3.5-5.1) Chloride Level 106 mmol/L (98-107) Carbon Dioxide Level 29 mmol/L (21-32) Anion Gap 8 (6-14) Blood Urea Nitrogen 11 mg/dL (7-20) Creatinine 0.6 mg/dL (0.6-1.0) Estimated GFR (Cockcroft-Gault) 102.3 Glucose Level 78 mg/dL (70-99) Calcium Level 9.5 mg/dL (8.5-10.1) Phosphorus Level 2.8 mg/dL (2.6-4.7) Magnesium Level 1.7 mg/dL (1.8-2.4) Test 04/11/20 10:54 Glucose (Fingerstick) 85 mg/dL (70-99) Assessment and Plan Assessmemt and Plan Problems Medical Problems: (1) Small bowel obstruction Status: Acute Comment Review of Relevant I have reviewed the following items luiz (where applicable) has been applied. Medications: Current Medications Medications (Trade) Dose Ordered Sig/Elsa Route PRN Reason Start Time Stop Time Status Last Admin Dose Admin Lactobacillus Rhamnosus (Culturelle) 1 cap BID PO 04/10/20 21:00 04/11/20 11:59 Justifications for Admission Other Justification AZEEM FLORES MD Apr 11, 2020 14:48
[2020-04-11 15:00] VITALS: BP 132/64
[2020-04-11] MEDS: MULTIVITAMIN I-VITE TABLET. PO SCH (15:53)
[2020-04-11] MEDS: DOXYCYCLINE HYCLATE 100 MG in IV DEXTROSE 5% 100ML 100 ML IV SCH ×2 (15:55→20:46)
[2020-04-11] MEDS: IV NORMAL SALINE 1000ML BAG 1,000 ML IV SCH ×2 (15:57→19:30)
[2020-04-11 19:00] VITALS: BP 112/50
[2020-04-11] MEDS: ONDANSETRON PF 4 MG/2 ML VIAL. IV PRN (20:43)
[2020-04-11] MEDS: traZODone 50 MG TABLET. PO SCH (20:43)
[2020-04-11 23:00] VITALS: BP 118/59
[2020-04-12 03:15] VITALS: BP 137/65
[2020-04-12] MEDS: IV NORMAL SALINE 1000ML BAG 1,000 ML IV SCH ×2 (05:30→15:30)
[2020-04-12] MEDS: LEVOTHYROXINE 25 MCG TABLET. PO SCH (05:30)
[2020-04-12 07:00] VITALS: BP 127/40
[2020-04-12] MEDS: PANTOPRAZOLE IV PUSH 40 MG VIAL. IVP SCH (08:17)
--- NOTE | 2020-04-12 09:28 | PDOC ---
ROQUE BATES COMMERCIAL SPECIALIST 04/12/20 0928: SURGICAL PROGRESS NOTE DATE: 04/12/20 TIME: 09:28 Subjective tolerating diet no emesis Vital Signs Vital Signs Date Time Temp Pulse Resp B/P (MAP) Pulse Ox O2 Delivery O2 Flow Rate FiO2 04/12/20 07:00 98.1 67 16 127/40 (69) 92 Room Air 98.1 I&O Intake and Output 04/12/20 07:00 Intake Total 1620 ml Balance 1620 ml Intake Oral 1620 ml # Voids 4 General: Alert, Oriented X3, Cooperative Abdomen: Soft, No tenderness Labs Laboratory Tests Test 04/11/20 00:02 04/11/20 05:58 04/11/20 06:20 04/11/20 08:35 Glucose (Fingerstick) 74 mg/dL (70-99) 64 mg/dL (70-99) 123 mg/dL (70-99) Sodium Level 143 mmol/L (136-145) Potassium Level 3.7 mmol/L (3.5-5.1) Chloride Level 106 mmol/L (98-107) Carbon Dioxide Level 29 mmol/L (21-32) Anion Gap 8 (6-14) Blood Urea Nitrogen 11 mg/dL (7-20) Creatinine 0.6 mg/dL (0.6-1.0) Estimated GFR (Cockcroft-Gault) 102.3 Glucose Level 78 mg/dL (70-99) Calcium Level 9.5 mg/dL (8.5-10.1) Phosphorus Level 2.8 mg/dL (2.6-4.7) Magnesium Level 1.7 mg/dL (1.8-2.4) Test 04/11/20 10:54 04/11/20 23:57 04/12/20 06:56 Glucose (Fingerstick) 85 mg/dL (70-99) 89 mg/dL (70-99) 89 mg/dL (70-99) Laboratory Tests Test 04/11/20 10:54 04/11/20 23:57 04/12/20 06:56 Glucose (Fingerstick) 85 mg/dL (70-99) 89 mg/dL (70-99) 89 mg/dL (70-99) Problem List Problems Medical Problems: (1) Small bowel obstruction Status: Acute Assessment/Plan advance diet Justicifation of Admission Dx: Justifications for Admission: Justification of Admission Dx: Yes YASMIN PATIÑO MD 04/12/20 1217: SURGICAL PROGRESS NOTE Assessment/Plan Pt seen and examined. Agree with Ms. Bates's note Pt feels better, mario diet abd soft OK to ADAT and work towards d/c. ROQUE BATES APRN Apr 12, 2020 09:28 YASMIN PATIÑO MD Apr 12, 2020 12:17
--- NOTE | 2020-04-12 10:03 | NUR ---
SW following. Discussed with RN, pt from home, room air, full liquid diet being advanced today, COVID-19 negative. RN advised no SW needs, anticipate discharge in the next day or two. SW will continue to follow.
[2020-04-12] MEDS: DOXYCYCLINE HYCLATE 100 MG in IV DEXTROSE 5% 100ML 100 ML IV SCH (10:50)
[2020-04-12] MEDS: MULTIVITAMIN I-VITE TABLET. PO SCH (10:51)
[2020-04-12] MEDS: LITHIUM CARBONATE ER 300 MG TABLET.ER PO SCH (10:51)
[2020-04-12] MEDS: CHOLECALCIFEROL (VITAMIN D3) 5,000 UNIT CAPSULE PO SCH (10:51)
[2020-04-12] MEDS: ENOXAPARIN 40 MG/0.4 ML SYRINGE. SQ SCH (10:51)
[2020-04-12] MEDS: FLUoxetine HCL 20 MG CAPSULE PO SCH (10:51)
[2020-04-12] MEDS: VENLAFAXINE 50 MG TABLET. PO SCH ×3 (10:51→19:55)
[2020-04-12] MEDS: LACTOBACILLUS RHAMNOSUS GG 1 CAPSULE. PO SCH ×2 (10:52→19:55)
[2020-04-12] MEDS: OXYBUTYNIN CHLORIDE 5 MG TABLET PO SCH ×2 (10:52→20:21)
[2020-04-12] MEDS: LOSARTAN POTASSIUM 50 MG TABLET. PO SCH (10:52)
[2020-04-12] MEDS: OMEGA-3 FATTY ACIDS/FISH OIL 1,000 MG CAPSULE. PO SCH (10:52)
[2020-04-12] MEDS: QUEtiapine 100 MG TABLET. PO SCH (10:52)
[2020-04-12] MEDS: METHADONE 10 MG TABLET. PO SCH ×3 (10:53→19:55)
[2020-04-12 11:00] VITALS: BP 111/60
--- NOTE | 2020-04-12 11:21 | PDOC ---
[facility] PROGRESS NOTE Date of Service DOS: DATE: 04/12/20 TIME: 11:21 Chief Complaint Chief Complaint Assessment/Plan Small bowel obstruction Left basilar infiltrate Constipation History of diabetes mellitus type 2 History of dyslipidemia Hypothyroidism which is acquired History of anxiety and depression Hyperglycemia of no clinical significance Plan N.p.o. May resume home meds as per surgical technician hold metformin, statin will start empiric docycycline for infiltrate noted on KUB will repeat chest x ray today pending results may discontinue doxycycline if not needed. Continue with NG tube Reassess in the a.m. Further recommendations based on the clinical course DVT prophylaxis with SCDs History of Present Illness History of Present Illness History of Present Illness Patient is a 59-year-old female with a past medical history of anxiety depression type 2 diabetes dyslipidemia who was in her usual state of health until more or less 24 hours when she started complaining of lower abdominal pain with radiation to the back no urinary symptoms no CVA tenderness no hematuria reported. Patient denies any dietary transgressions, no changes to her medications she denies sick contacts no travels outside this area. She denies any fever chills no diaphoresis no sensation of impending doom. Patient denies any cough shortness of breath or upper respiratory tract infections either. She does complain of constipation which resulted in the above-mentioned discomfort that she describes as a sharp sensation 10 out of 10 intensity at the worst moments currently at about the 4 time my evaluation. Patient denies alleviating factors and she did not self medicate at home. Her oral intake has certainly decreased due to her symptoms and she felt that she was getting dehydrated reason why she decided to come to the emergency department for further evaluation and treatment. Patient was found to have small bowel obstruction on imaging studies reason why we were asked to admit the patient for further evaluation and definitive treatment, no headache no blurred vision no dysphagia odynophagia no slurred speech no focal neurological deficit no peripheral edema all other complaints were voiced. Plan of care explained detail and all of her concerns addressed to the best of my abilities. Reassurance provided 04/09: No acute events reported overnight, case discussed with nursing staff patient in no acute distress no complaints during my visit clamped NG tube at the present time. I have encouraged more activity especially now that her NG tube is clamped for med administration. Reassurance provided we will repeat an x-ray today to determine whether indeed this infiltrate noted on KUB is playing a significant role. Will start doxycycline empirically and de-escalate if need be 04/10/2020 No acute events overnight. Patient is ambulating to the bathroom on her own. NG tube still in place and clamped. Bile appearing fluid in the wall suction canister. No signs of bleeding. Patient's chart, labs, images were reviewed and discussed with RN 04/11/2020 No acute events overnight. Patient seen and examined bedside. NG tube will be removed this morning and add patient is passing stools and also passing flatus. Advance to clear liquid diet and advance as tolerated. Patient's chart, labs, images were reviewed and discussed with RN 04/12/2020 No acute events overnight. Patient remains afebrile. Patient resting at bedside comfortably. Tolerating clear liquid diet and will advance as tolerated. Patient's chart, labs, images were reviewed and discussed with RN Vitals/I&O Vitals/I&O: Vital Signs Date Time Temp Pulse Resp B/P (MAP) Pulse Ox O2 Delivery O2 Flow Rate FiO2 04/12/20 10:52 67 127/40 04/12/20 07:00 98.1 16 92 Room Air 98.1 I & O 04/11/20 04/11/20 04/12/20 15:00 23:00 07:00 Intake Total 540 ml 680 ml 400 ml Balance 540 ml 680 ml 400 ml Physical Exam General: Alert, Oriented X3, Cooperative Abdomen: Soft, No tenderness Extremities: No clubbing, No cyanosis Skin: No rashes, No breakdown Labs Labs: Laboratory Tests Test 04/11/20 23:57 04/12/20 06:56 Glucose (Fingerstick) 89 mg/dL (70-99) 89 mg/dL (70-99) Assessment and Plan Assessmemt and Plan Problems Medical Problems: (1) Small bowel obstruction Status: Acute Comment Review of Relevant I have reviewed the following items luiz (where applicable) has been applied. Justifications for Admission Other Justification AZEEM FLORES MD Apr 12, 2020 11:21
[2020-04-12 15:00] VITALS: BP 120/65
[2020-04-12 19:00] VITALS: BP 106/59
[2020-04-12] MEDS: traZODone 50 MG TABLET. PO SCH (19:54)
[2020-04-12] MEDS ORDERED: diphenhydrAMINE HCL 25 MG CAPSULE PO PRN (20:15)
[2020-04-12 23:03] VITALS: BP 128/59
[2020-04-13 03:04] VITALS: BP 127/56
[2020-04-13] MEDS: LEVOTHYROXINE 25 MCG TABLET. PO SCH (06:22)
[2020-04-13 07:00] VITALS: BP 138/79
[2020-04-13] MEDS ORDERED: PANTOPRAZOLE 40 MG TABLET.DR. PO SCH (07:30)
[2020-04-13] MEDS: MULTIVITAMIN I-VITE TABLET. PO SCH (08:51)
[2020-04-13] MEDS: CHOLECALCIFEROL (VITAMIN D3) 5,000 UNIT CAPSULE PO SCH (08:51)
[2020-04-13] MEDS: OXYBUTYNIN CHLORIDE 5 MG TABLET PO SCH (08:51)
[2020-04-13] MEDS: LITHIUM CARBONATE ER 300 MG TABLET.ER PO SCH (08:51)
[2020-04-13] MEDS: ENOXAPARIN 40 MG/0.4 ML SYRINGE. SQ SCH (08:51)
[2020-04-13] MEDS: OMEGA-3 FATTY ACIDS/FISH OIL 1,000 MG CAPSULE. PO SCH (08:51)
[2020-04-13] MEDS: VENLAFAXINE 50 MG TABLET. PO SCH (08:51)
[2020-04-13] MEDS: LACTOBACILLUS RHAMNOSUS GG 1 CAPSULE. PO SCH (08:52)
[2020-04-13] MEDS: LOSARTAN POTASSIUM 50 MG TABLET. PO SCH (08:52)
[2020-04-13] MEDS: METHADONE 10 MG TABLET. PO SCH ×2 (08:52→14:08)
[2020-04-13] MEDS: FLUoxetine HCL 20 MG CAPSULE PO SCH (08:52)
[2020-04-13] MEDS: QUEtiapine 100 MG TABLET. PO SCH (08:52)
--- NOTE | 2020-04-13 09:07 | PDOC ---
JANAROQUE Marie POLICE DISPATCHER 04/13/20 0907: SURGICAL PROGRESS NOTE DATE: 04/13/20 TIME: 09:05 Subjective resting tolerating diet still some pain upper abdomen -overall better though + flatus, no stool couple days Vital Signs Vital Signs Date Time Temp Pulse Resp B/P (MAP) Pulse Ox O2 Delivery O2 Flow Rate FiO2 04/13/20 08:52 70 138/79 04/13/20 07:00 98.1 18 97 Room Air 98.1 I&O Intake and Output 04/13/20 07:00 Intake Total 950 ml Balance 950 ml Intake Oral 950 ml General: Alert, Oriented X3, Cooperative Abdomen: Soft, Other (TTP epigastric) Labs Laboratory Tests Test 04/11/20 10:54 04/11/20 23:57 04/12/20 06:56 04/12/20 11:26 Glucose (Fingerstick) 85 mg/dL (70-99) 89 mg/dL (70-99) 89 mg/dL (70-99) 187 mg/dL (70-99) Test 04/12/20 19:09 04/13/20 07:09 Glucose (Fingerstick) 189 mg/dL (70-99) 82 mg/dL (70-99) Laboratory Tests Test 04/12/20 11:26 04/12/20 19:09 04/13/20 07:09 Glucose (Fingerstick) 187 mg/dL (70-99) 189 mg/dL (70-99) 82 mg/dL (70-99) Problem List Problems Medical Problems: (1) Small bowel obstruction Status: Acute Assessment/Plan stable dc per primary Justicifation of Admission Dx: Justifications for Admission: Justification of Admission Dx: Yes YASMIN PATIÑO MD 04/13/20 0946: SURGICAL PROGRESS NOTE Assessment/Plan Pt seen and examined. Agree with Ms. Holder's note Pt without c/o abd soft OK to d/c ROQUE HOLDER APRN Apr 13, 2020 09:07 YASMIN PATIÑO MD Apr 13, 2020 09:46
--- NOTE | 2020-04-13 09:53 | NUR ---
SW following. Discussed with RN, pt from home, room air, GI soft. Surgery okay with discharge. RN advised no SW needs, anticipate pt will discharge home today with self care.
[2020-04-13 10:39] VITALS: BP 105/80
--- NOTE | 2020-04-13 11:32 | DISCH ---
DISCHARGE INSTRUCTIONS Condition on Discharge Condition on Discharge: Stable Activity After Discharge Activity Instructions for Disc: Activity as tolerated Lifting Instructions after Dis: Do not lift >10 pounds Driving Instructions after Dis: Do not drive today Weight Bearing Status after Di: As tolerated Diet after Discharge Diet after Discharge: Cardiac Diet Texture: Regular Checks after Discharge DC Comment: CBC, CMP within 2 weeks of discharge Follow-Up Follow up with: PCP within 2 weeks of discharge Follow Up With: General surgery regarding your small bowel obstruction, as needed AZEEM FLORES MD Apr 13, 2020 11:32
--- NOTE | 2020-04-13 15:04 | NUR ---
Pt was given discharge instructions, follow up information, new prescriptions and teaching handouts. Pt is stable. No iv to remove. All belongings left with pt at time of discharge- home with self care- at 1430 via hospital transport in wheelchair. Methadone medication given before patient left the hospital.
--- NOTE | 2020-04-16 16:01 | PDOC3 ---
[facility]-Discharge Summary Date of Admission: Date of Admission: Apr 08, 2020 Date of Discharge: Date of Discharge: Apr 13, 2020 Discharge Diagnosis: Discharge Diagnosis: Small bowel obstruction Left basilar infiltrate Constipation History of diabetes mellitus type 2 History of dyslipidemia Hypothyroidism which is acquired History of anxiety and depression Hyperglycemia of no clinical significance Hospital Course: Hospital Course: 59-year-old female with a past medical history of anxiety depression type 2 diabetes dyslipidemia who was in her usual state of health until more or less 24 hours when she started complaining of lower abdominal pain with radiation to the back no urinary symptoms no CVA tenderness no hematuria reported. Patient d enies any dietary transgressions, no changes to her medications she denies sick contacts no travels outside this area. She denies any fever chills no diaphoresis no sensation of impending doom. Patient denies any cough shortness of breath or upper respiratory tract infections either. She does complain of constipation which resulted in the above-mentioned discomfort that she describes as a sharp sensation 10 out of 10 intensity at the worst moments currently at about the 4 time my evaluation. Patient denies alleviating factors and she did not self medicate at home. Her oral intake has certainly decreased due to her symptoms and she felt that she was getting dehydrated reason why she decided to come to the emergency department for further evaluation and treatment. Patient was found to have small bowel obstruction on imaging studies reason why we were asked to admit the patient for further evaluation and definitive treatment, no headache no blurred vision no dysphagia odynophagia no slurred speech no focal neurological deficit no peripheral edema all other complaints were voiced. Plan of care explained detail and all of her concerns addressed to the best of my abilities. Reassurance provided 04/09: No acute events reported overnight, case discussed with nursing staff patient in no acute distress no complaints during my visit clamped NG tube at the present time. I have encouraged more activity especially now that her NG tube is clamped for med administration. Reassurance provided we will repeat an x-ray today to determine whether indeed this infiltrate noted on KUB is playing a significant role. Will start doxycycline empirically and de-escalate if need be 04/10/2020 No acute events overnight. Patient is ambulating to the bathroom on her own. NG tube still in place and clamped. Bile appearing fluid in the wall suction canister. No signs of bleeding. Patient's chart, labs, images were reviewed and discussed with RN 04/11/2020 No acute events overnight. Patient seen and examined bedside. NG tube will be removed this morning and add patient is passing stools and also passing flatus. Advance to clear liquid diet and advance as tolerated. Patient's chart, labs, images were reviewed and discussed with RN 04/12/2020 No acute events overnight. Patient remains afebrile. Patient resting at bedside comfortably. Tolerating clear liquid diet and will advance as tolerated. Patient's chart, labs, images were reviewed and discussed with RN Patient able to advance to a GI soft diet and ready to go home. Rest of her hospital course was uneventful. Disposition: Disposition/Orders: D/C to Home w/ HH Activity: Activity: Resume previous activity Diet: Diet: Regular Medications: Home Meds Active Scripts Albuterol Sulfate (PROAIR HFA INHALER) 8.5 Gm Hfa.aer.ad, 2 PUFF INH PRN Q6HRS PRN for SHORTNESS OF BREATH for 30 Days, INHALER 0 Refills Prov:JASS CONTRERAS MD 09/10/17 Levothyroxine Sodium (LEVOTHYROXINE SODIUM) 25 Mcg Tablet, 1 TAB PO DAILY, #30 TAB 5 Refills Prov:JASS CONTRERAS MD 09/10/17 Reported Medications Pantoprazole Sodium (PROTONIX) 20 Mg Tablet.dr, 20 MG PO DAILY for gerd, TAB 02/17/19 Losartan Potassium (Losartan Potassium) 50 Mg Tablet, 50 MG PO DAILY for htn, TAB 02/17/19 Fluoxetine Hcl (FLUOXETINE HCL) 40 Mg Capsule, 40 MG PO DAILY, CAP 09/09/17 Venlafaxine Hcl (VENLAFAXINE HCL ER) 150 Mg Tab.er.24, 150 MG PO DAILY, CAP.SR 09/09/17 Metformin Hcl (METFORMIN HCL) 500 Mg Tablet, 500 MG PO BIDWMEALS for ANTI- DIABETIC, TAB 0 Refills 09/09/17 Methadone Hcl (METHADONE HCL) 10 Mg Tablet, 10 MG PO TID, TAB 09/09/17 Atorvastatin Calcium (ATORVASTATIN CALCIUM) 10 Mg Tablet, 10 MG PO HS for FOR CHOLESTEROL, #30 TAB 0 Refills 09/09/17 [place] Carbonate (LITHIUM CARBONATE) 300 Mg Capsule, 300 MG PO DAILY, CAP 09/09/17 Fenofibrate,Micronized (FENOFIBRATE) 134 Mg Capsule, 134 MG PO DAILY, CAP 09/09/17 Quetiapine Fumarate (Quetiapine Fumarate ER) 200 Mg Tab.er.24h, 200 MG PO DAILY, TAB.SR 09/09/17 Trazodone Hcl (TRAZODONE HCL) 150 Mg Tablet, 150 MG PO HS, TAB 09/09/17 Oxybutynin Chloride (OXYBUTYNIN CHLORIDE ER) 10 Mg Tab.er.24, 10 MG PO DAILY, TAB.SR 09/09/17 C,E,Zinc,Copper 11/Hukrm6u/Lut (Ocuvite Adult 50 Plus Softgel) 1 Each Capsule, 1 EACH PO DAILY, CAP 09/09/17 [place]-3/Dha/Epa/Fish Oil (FISH OIL 1,000 MG SOFTGEL) 1 Each Capsule, 1 EACH PO DAILY, CAP 09/09/17 Cholecalciferol (Vitamin D3) (VITAMIN D3) 5,000 Unit Tablet, 5000 UNIT PO DAILY, TAB 09/09/17 Iron,Carbonyl/Vit C/Vit B12/Fa (IRON 100 PLUS TABLET) 1 Each Tablet, 1 EACH PO, TAB 09/09/17 Scheduled Atorvastatin Calcium (Atorvastatin Calcium), 10 MG PO HS, (Reported) C,E,Zinc,Copper 11/Xxxvo7u/Lut (Ocuvite Adult 50 Plus Softgel), 1 EACH PO DAILY, (Reported) Cholecalciferol (Vitamin D3) (Vitamin D3), 5,000 UNIT PO DAILY, (Reported) Fenofibrate,Micronized (Fenofibrate), 134 MG PO DAILY, (Reported) Fluoxetine Hcl (Fluoxetine Hcl), 40 MG PO DAILY, (Reported) Levothyroxine Sodium (Levothyroxine Sodium), 1 TAB PO DAILY [place] Carbonate ([place] Carbonate), 300 MG PO DAILY, (Reported) Losartan Potassium (Losartan Potassium), 50 MG PO DAILY, (Reported) Metformin Hcl (Metformin Hcl), 500 MG PO BIDWMEALS, (Reported) Methadone Hcl (Methadone Hcl), 10 MG PO TID, (Reported) [place]-3/Dha/Epa/Fish Oil (Fish Oil 1,000 Mg Softgel), 1 EACH PO DAILY, (Reported) Oxybutynin Chloride (Oxybutynin Chloride Er), 10 MG PO DAILY, (Reported) Pantoprazole Sodium (Protonix), 20 MG PO DAILY, (Reported) Quetiapine Fumarate (Quetiapine Fumarate ER), 200 MG PO DAILY, (Reported) Trazodone Hcl (Trazodone Hcl), 150 MG PO HS, (Reported) Venlafaxine Hcl (Venlafaxine Hcl Er), 150 MG PO DAILY, (Reported) Scheduled PRN Albuterol Sulfate (Proair Hfa Inhaler), 2 PUFF INH PRN Q6HRS PRN for SHORTNESS OF BREATH Miscellaneous Medications Iron,Carbonyl/Vit C/Vit B12/Fa (Iron 100 Plus Tablet), 1 EACH PO, (Reported) Total Time: Total Time: Total time spent was 45 minutes in preparing scripts, discharge planning with SW and RN, and preparing this discharge summary. Patient seen and examined on day of discharge. Justicifation of Admission Dx: Justifications for Admission: Justification of Admission Dx: Yes AZEEM FLORES MD Apr 16, 2020 16:00
== END 2020-04-13 14:30 | disposition home or self-care (01) | DRG 390 ==
LOC: ER 18:58 → 4 NORTH 04-08 00:12
PROVIDERS: ADMIT Internal Medicine; ATTEND Internal Medicine
PROC: 0D9670Z Drainage of Stomach with Drainage Device, Via Natural or Artificial Opening (ICD-10-PCS; principal; 2020-04-08)
DX: K56.600 Partial intestinal obstruction, unspecified as to cause (principal); E03.9 Hypothyroidism, unspecified; E11.65 Type 2 diabetes mellitus with hyperglycemia; E78.00 Pure hypercholesterolemia, unspecified; E78.5 Hyperlipidemia, unspecified; I10 Essential (primary) hypertension; J45.909 Unspecified asthma, uncomplicated; F41.8 Other specified anxiety disorders; Z87.891 Personal history of nicotine dependence; G89.29 Other chronic pain; Z90.49 Acquired absence of other specified parts of digestive tract; Z90.710 Acquired absence of both cervix and uterus; Z98.1 Arthrodesis status; Z79.899 Other long term (current) drug therapy; Z88.0 Allergy status to penicillin; Z88.2 Allergy status to sulfonamides; Z88.8 Allergy status to other drugs, medicaments and biological substances; M19.90 Unspecified osteoarthritis, unspecified site; Z20.822 Contact with and (suspected) exposure to COVID-19
CPT/HCPCS: 36415; 71045; 74018; 74177; 74250; 80048; 80053; 82962; 83690; 83735; 84100; 84443; 85025; 87426; 96361; 96374; 96375; 96376; 99285; C9113; J1200; J1650; J1815; J2270; J2405; J3490; J7030; J7060; Q9966; Q9967; U0003; G0378; Q0163

== ENCOUNTER → 2020-10-30 | Outpatient (CLI) | payer MEDICARE ==
[~2020-10-30] MED LIST changes: +IOHEXOL 240 MG/ML 50ML VIAL. PO ONE; +IOHEXOL 300 MG/ML 100ML VIAL. IV ONE; +METH-572 PO; -METH10TA2 PO
[2020-10-30 08:35] LABS: CREATININE 0.8 mg/dL (0.6-1.0); GFR 73.2
--- NOTE | 2020-10-30 10:37 | RAD ---
Study: CT chest, abdomen and pelvis with contrast INDICATION: Chest and abdominal pain. COMPARISON: CT abdomen/pelvis 04/07/2020 TECHNIQUE: Helical CT imaging performed of the chest, abdomen and pelvis after the intravenous admini stration of 75 cc Omnipaque 300. Positive oral contrast administered as well. Coronal and sagittal re formats were obtained. One or more of the following individualized dose reduction techniques were utilized for this examinat ion: 1. Automated exposure control 2. Adjustment of the mA and/or kV according to patient size 3. Use of iterative reconstruction technique. FINDINGS: CT Chest: Mild scattered atheromatous plaque. The great vessel origins are patent. No thoracic aortic aneurysm or dissection. Main pulmonary artery caliber is within normal limits. The proximal right vertebral ar zac is not visualized possibly from nondominance. Unremarkable CT appearance of the esophagus. No mediastinal or hilar adenopathy. No suspicious pulmonary nodule, localized infiltrate or pleural effusion. Tiny nodule at the lateral aspect of the left lower lobe on image 39 series 2 measuring 2.5 mm. Patent central airways. Heterogeneous right thyroid lobe nodule measuring up to approximately 2.5 cm AP. Dystrophic mineraliz ation either associated with or adjacent to this nodule on image 4 series 2. No axillary lymphadenopa thy. No acute or aggressive osseous process. Mild scattered degenerative changes. CT Abdomen/Pelvis: Hepatic steatosis and unchanged mild hepatomegaly. Surgically absent gallbladder. Unremarkable biliar y tree. No discrete pancreatic mass or ductal dilatation. The spleen is within the broad range of nor mal for size. Unchanged adrenal gland morphology. Redemonstration of bilateral renal cystic foci some of which are too small to characterize. No measur able change in size from the prior. No nephrolithiasis or collecting system dilatation. Unremarkable bladder. Absent uterus. No adnexal mass. A few colonic diverticuli without diverticulitis. Mild volume colonic stool burden. The appendix is n ot well-visualized. No inflammatory changes at its expected location. No pathologic dilatation of sma ll bowel. Previously seen mild dilatation has resolved. No localized gastric wall thickening. Mild scattered calcific atherosclerosis. Nonaneurysmal abdominal aorta. Small fat-containing umbilica l hernia. No complex body wall hernia. Midline surgical scarring. No lymphadenopathy by size criteria . No acute or aggressive osseous process. Sequela of interbody fusion at L2-L3 and L3-L4. There is agai n discogenic arthrosis at L1-L2, L4-L5 and L5-S1 on a background of mild sigmoid curvature. Multileve l facet arthrosis. Osseous neural foraminal narrowing again greatest bilaterally at L5-S1 and on the left at L4-L5. Mild arthrosis at the hips. IMPRESSION: CT Chest: 1. No acute abnormality seen throughout the chest. 2. Heterogeneous right thyroid lobe nodule measuring up to approximately 2.5 cm AP. If not previousl y performed this would meet size criteria for eventual dedicated thyroid ultrasound. 3. Tiny left lower lobe nodule measuring no more than 2.5 mm. No nodule is seen that would warrant d edicated follow-up per Fleischner guidelines. Annual low-dose CT only if there are risk factors for l el malignancy. CT Abdomen/Pelvis: 1. No acute abnormality seen throughout the abdomen or pelvis. 2. Several renal cystic foci which are unchanged from 04/07/2020. Several are too small to characteriz e. Consider ultrasound follow-up in 6-12 months. 3. Nonobstructed small bowel. Mild small bowel dilatation on the comparison has resolved. 4. Additional chronic findings described in the body of the report to include hepatic steatosis, mil d hepatomegaly, several colonic diverticuli and multilevel spondylosis. Electronically signed by: NEHEMIAS OWENS MD (10/30/2020 10:35 AM) [facility]
== END ==
LOC: CT 08:39
PROVIDERS: ATTEND Internal Medicine Gastroenterology
DX: K76.0 Fatty (change of) liver, not elsewhere classified (principal); K57.30 Diverticulosis of large intestine without perforation or abscess without bleeding; E04.1 Nontoxic single thyroid nodule; N28.1 Cyst of kidney, acquired; K42.9 Umbilical hernia without obstruction or gangrene; R12 Heartburn; M47.817 Spondylosis without myelopathy or radiculopathy, lumbosacral region; M48.07 Spinal stenosis, lumbosacral region; M16.0 Bilateral primary osteoarthritis of hip; Z90.49 Acquired absence of other specified parts of digestive tract
CPT/HCPCS: 36415; 71260; 74177; 82565; 84520; Q9966; Q9967

== ENCOUNTER → 2020-12-01 | Day surgery (SDC) | payer MEDICARE ==
[~2020-12-01] VITALS: Ht 161.3 cm; Wt 90.0 kg
[~2020-12-01] MED LIST changes: +FAMO20TA5 PO; +GLIM1TAB7 PO; -IOHEXOL 240 MG/ML 50ML VIAL. PO ONE; -IOHEXOL 300 MG/ML 100ML VIAL. IV ONE; +IV RINGERS,LACTATED 1000ML 1,000 ML IV SCH; +LEVO88TA4 PO; +LIDOCAINE 2% PF 5 ML VIAL. ONE; +PROPOFOL 10 MG/ML (20ML) VIAL. IV ONE
[2020-12-01 07:26] VITALS: BP 117/57
[2020-12-01 08:45] VITALS: BP 106/71
--- NOTE | 2020-12-01 13:22 | HP ---
ADMIT DATE: 12/01/2020 UPDATED HISTORY AND PHYSICAL REFERRING PHYSICIAN: Sana Solitario MD. HISTORY OF PRESENT ILLNESS: A 60-year-old female, who presents with epigastric abdominal pain, it is intermittent in nature with burning chest and abdominal pain. She is not active, as she walks with a walker. Cardiology consultation has been obtained. She does have longstanding diabetes as well as decreased appetite. Her weight is down over 40 pounds due to recent difficulties. Protonix 40 mg daily has not helped her symptoms. Colonoscopy in 2019 did reveal polyps at that time. With continued issues, she requests additional evaluation. PAST MEDICAL HISTORY: Anxiety, asthma, depression, diabetes, gallbladder disease, high blood pressure, hypothyroidism. ALLERGIES: PENICILLIN, SULFA, AND ASPIRIN. MEDICATIONS: Include albuterol, atorvastatin, famotidine, fenofibrate, Prozac, glimepiride, levothyroxine, lithium, losartan, metformin, methadone, oxybutynin, pantoprazole, trazodone, and venlafaxine. PAST SURGICAL HISTORY: Appendectomy, back surgery, gallbladder surgery, hysterectomy, tubal ligation. REVIEW OF SYSTEMS: As per records. PHYSICAL EXAMINATION: GENERAL: Reveals a well-nourished white female. VITAL SIGNS: Temperature 97.5, pulse 80, respirations 18. LUNGS: Clear. CARDIOVASCULAR: S1, S2, without S3, S4 or appreciable murmur. ABDOMEN: Soft abdomen, normal bowel sounds, without appreciable hepatosplenomegaly. EXTREMITIES: No cyanosis, clubbing or edema. IMPRESSION: Abdominal pain, status post cholecystectomy with weight loss; gastroparesis; peptic ulcer disease; malignancy; celiac disease leave with differential, as well as partial small-bowel obstruction, adhesions. Therefore, I recommend upper endoscopy to further assess. If this is unrevealing, then further imaging including possible gastric emptying study and/or small bowel series will then be pursued. SACHIN/DAI DR: Alvin TID: [id number]
--- NOTE | 2020-12-05 17:06 | PATHOLOGY ---
[facility] Accession Number: [id number] . 01 Material submitted: . gastrointestinal site - GASTRIC BIOPSIES . 01 Clinical history: . DIFFUSE ABDOMINAL PAIN EGD . 02 Diagnosis: Gastric biopsies: - Chronic gastritis, mild to moderate. (JPM:jessi; 12/05/2020) . . Special stain performed: Immunoperoxidase stain for Helicobacter on A1 MBR 12/05/2020 1431 Local . 02 Comment: Sections of the gastric biopsy reveal segments of gastric body and gastric antral mucosa. The gastric body mucosa shows mild superficial chronic inflammation. The antral mucosa shows mild to moderate chronic inflammation. A properly controlled immunoperoxidase stain for Helicobacter is negative for Helicobacter organisms. (JPM:jessi; 12/05/2020) . 02 Electronically signed: . Scar Evangelista MD, Pathologist NPI- [id number] . 01 Gross description: . The specimen is submitted in formalin, labeled "[place], [place]ay, gastric biopsies". Received are 4 segments of pale henry tissue ranging in size from 0.4 to 0.6 cm in maximum dimensions. The specimen is submitted in cassette A1. ([facility]; 12/01/2020) NRI/NRI 12/01/2020 1753 Local . 02 Pathologist provided ICD-10: K29.50 . 02 CPT . 156790, [id number] Specimen Comment: A courtesy copy of this report has been sent to [phone], [phone] Specimen Comment: [id number] Specimen Comment: Report sent to / DR CONTRERAS Performed at: [address], [place], [place] [id number] MD Myke Branham MD Phone: [phone] Performed at: 02 [facility] [address] [place], [place] [id number] MD Scar Evangelista MD Phone: [phone]
== END | disposition home or self-care (01) ==
LOC: ENDOS 06:54
PROVIDERS: ATTEND Internal Medicine Gastroenterology
DX: R10.13 Epigastric pain (principal); K29.50 Unspecified chronic gastritis without bleeding; K31.89 Other diseases of stomach and duodenum; J45.909 Unspecified asthma, uncomplicated; E11.9 Type 2 diabetes mellitus without complications; E78.00 Pure hypercholesterolemia, unspecified; E03.9 Hypothyroidism, unspecified; F41.9 Anxiety disorder, unspecified; F32.9 Major depressive disorder, single episode, unspecified; I10 Essential (primary) hypertension; E66.9 Obesity, unspecified; F17.210 Nicotine dependence, cigarettes, uncomplicated; Z90.49 Acquired absence of other specified parts of digestive tract; Z98.51 Tubal ligation status; Z98.890 Other specified postprocedural states; Z72.89 Other problems related to lifestyle; Z88.0 Allergy status to penicillin; Z88.2 Allergy status to sulfonamides; Z88.8 Allergy status to other drugs, medicaments and biological substances
CPT/HCPCS: 43239; 88305; 88342; J2704; 43235

== ENCOUNTER → 2020-12-06 | Outpatient (CLI) | payer MEDICARE ==
[2020-12-01 08:45] VITALS: BP 106/71
[~2020-12-06] MED LIST changes: -IV RINGERS,LACTATED 1000ML 1,000 ML IV SCH; -LIDOCAINE 2% PF 5 ML VIAL. ONE; -PROPOFOL 10 MG/ML (20ML) VIAL. IV ONE
--- NOTE | 2020-12-07 09:41 | RAD ---
EXAMINATION: US THYROID INDICATION: 60 years, Female, right thyroid nodule. Further evaluation. COMPARISON: 10/30/2020 Technique: Real-time grayscale and color Doppler imaging of the thyroid gland was performed per sean col. Findings: The right thyroid lobe measures: 4.3 x 2.0 x 1.8 cm. The left thyroid lobe measures: 3.5 x 1.4 x 1.4 cm. The isthmus measures: 0.3 cm. Estimated total number of nodules >/= 1cm: 1 Number of spongiform nodules >/= 2cm not described below (TR1): 0 Nodule #1: Maximum size: 2.7 x 1.8 x 1.7 cm Location: Mid/lower pole right thyroid lobe. Composition: Solid or almost completely solid (2) Echogenicity: Hyperechoic or isoechoic (1 point) Shape: [id number] (0 points) Margins: Lobulated or irregular (2 points) Echogenic foci: Punctate echogenic foci (3 points) ACR TI-RADS total points: 8. ACR TI-RADS risk category: TR5 (7 or more points) - Highly suspicious. FNA if ?1 cm. Follow if ?0.5 c m. Nodule #2: Maximum size: 0.6 cm Location: Midpole left thyroid lobe Composition: Solid or almost completely solid (2) Echogenicity: Hyperechoic or isoechoic (1 point) Shape: Fsszr-[id number] (0 points) Margins: Ill-defined (0 points) Echogenic foci: None or large comet-tail artifacts (0 points) ACR TI-RADS total points: 3. ACR TI-RADS risk category: TR3 (3 points) - Mildly suspicious. FNA if ?2.5 cm. Follow if ?1.5 cm. IMPRESSION: 1. Mid/lower pole 2.7 cm right thyroid nodule meets TI RADS criteria for fine-needle aspiration. 2. Subcentimeter left thyroid nodule with no follow-up or FNA is required. ACR TI-RADS recommendations TR5 (?7 points) - FNA if ? 1cm, follow-up if 0.5 - 0.9 cm every year for 5 years TR4 (4-6 points) - FNA if ? 1.5cm, follow-up if 1 - 1.4 cm in 1, 2, 3 and 5 years TR3 (3 points)- FNA if ? 2.5cm, follow-up if 1.5 - 2.4 cm in 1, 3 and 5 years TR2 (2 points) & TR1 (0 points) - No FNA or follow-up *Decision to biopsy should include other considerations such as patient demographics and relevant cli nical information. Reference: TIRADS 2017 J Am Elayne Radiol 2017;14:587-595 Electronically signed by: Cresencio Moody MD (12/07/2020 9:39 AM) [id number]
== END ==
LOC: US 15:45
PROVIDERS: ATTEND Internal Medicine Gastroenterology
DX: E04.2 Nontoxic multinodular goiter (principal)
CPT/HCPCS: 76536

== ENCOUNTER → 2020-12-14 | Outpatient (CLI) | payer MEDICARE ==
[2020-12-01 08:45] VITALS: BP 106/71
--- NOTE | 2020-12-14 13:21 | RAD ---
EXAM: Nuclear gastric emptying scan. HISTORY: Abdominal pain. COMPARISON: None. TECHNIQUE: Serial static images were obtained over the stomach following oral administration of 2 mCi 99m-Tc sulfur colloid. FINDINGS: The stomach empties into the small bowel without evidence of reflux in the area of the esop hagus. Gastric retention percents: 1 hour 88% (normal range 34.8-91%) 2 hour 50% (normal range 2.7-60%) 3 hour 40% (normal range 0.5-28%) 4 hour 34% (normal range 0-10%) The estimated time for half emptying of gastric contents, i.e. 'gastric emptying time' is 121 minutes (normal is 66 +/- 22 minutes). IMPRESSION: Delayed gastric emptying half-time and delayed gastric emptying at 3 hours and 4 hours. C orrelate for possible gastroparesis. Electronically signed by: Ciara Hernandez MD (12/14/2020 1:18 PM) [id number]
== END ==
LOC: NM 07:56
PROVIDERS: ATTEND Internal Medicine Gastroenterology
DX: R10.9 Unspecified abdominal pain (principal)
CPT/HCPCS: 78264; A9541

== ENCOUNTER → 2021-01-04 | Outpatient (CLI) | payer MEDICARE ==
[2020-12-01 08:45] VITALS: BP 106/71
--- NOTE | 2021-01-04 11:45 | RAD ---
EXAM: Bilateral digital screening mammogram. HISTORY: 60-year-old female presents for screening mammography. TECHNIQUE: Full-field digital craniocaudal and mediolateral oblique images of both breasts are obtain ed for evaluation. Computer aided detection was applied. COMPARISON: 01/05/2020 BREAST PARENCHYMAL DENSITY: Level B - Scattered fibroglandular densities. FINDINGS: There is no new suspicious mass there has been interval decrease in a small circumscribed b enign nodular density within the 6:00 position of the right breast. There are a few benign microcalci fications. IMPRESSION: BI-RADS Category 2: Benign finding(s). RECOMMENDATION: Annual mammography is recommended If your mammogram demonstrates that you have dense breast tissue, which could hide abnormalities, and if you have other risk factors for breast cancer that have been identified, you might benefit from s upplemental screening tests that may be suggested by your ordering physician. Dense breast tissue, i n and of itself, is a relatively common condition. This information is not provided to cause undue c oncern, but rather to raise your awareness and to promote discussion with your physician regarding th e presence of other risk factors, in addition to dense breast tissue. A report of your mammography re sults will be sent to you and your physician. You should contact your physician if you have any ques tions or concerns regarding this report. Mammography is a sensitive method for finding small breast cancers, but it does not detect them all a nd is not a substitute for careful clinical examination. A negative mammogram does not negate a clin ically suspicious finding and should not result in delay in biopsying a clinically suspicious abnorma lity. PQRS compliance statement - Patient information was entered into a reminder system with a target due date for the next mammogram. "Our facility is accredited by the [employer] Mammography Program." Electronically signed by: Ciara Hernandez MD (01/04/2021 11:42 AM) [id number]
== END ==
LOC: MAMMO 11:14
PROVIDERS: ATTEND Family Medicine
DX: Z12.31 Encounter for screening mammogram for malignant neoplasm of breast (principal)
CPT/HCPCS: 77067

== ENCOUNTER → 2021-01-04 | Outpatient (CLI) | payer MEDICARE ==
[2020-12-01 08:45] VITALS: BP 106/71
--- NOTE | 2021-01-04 11:54 | RAD ---
EXAM: Right thyroid fine-needle aspiration. HISTORY: Dominant right thyroid nodule. TECHNIQUE: The risks of the procedure discussed with the patient and written and verbal consent was o btained. A timeout was performed. Sonographic imaging of the right thyroid lobe was performed and the nodule of concern measuring 2.7 cm was identified. The skin overlying this region was sterilely prep ped, draped and infiltrated with 1 percent lidocaine. 4 passes were made into the nodule with 25-gaug e needles using sonographic guidance. Given scant aspirate, a Rotex needle was advanced into the nodu le with sonographic guidance and submitted to the pathologist for interpretation. Manual compression was maintained until hemostasis was achieved. A sterile bandage was placed. The patient tolerated the procedure without difficulty. IMPRESSION: Sonographic guided fine-needle aspiration of a 2.7 cm dominant right thyroid nodule. An a ddendum to this report will be submitted when pathology results are available. Electronically signed by: Ciara Hernandez MD (01/04/2021 11:52 AM) [id number]
== END | disposition home or self-care (01) ==
LOC: MAMMO 11:07
PROVIDERS: ATTEND Internal Medicine Gastroenterology
DX: E04.1 Nontoxic single thyroid nodule (principal); I10 Essential (primary) hypertension; E78.00 Pure hypercholesterolemia, unspecified; J45.909 Unspecified asthma, uncomplicated; E66.9 Obesity, unspecified; K21.9 Gastro-esophageal reflux disease without esophagitis; E03.9 Hypothyroidism, unspecified; E11.9 Type 2 diabetes mellitus without complications; F41.9 Anxiety disorder, unspecified; F32.9 Major depressive disorder, single episode, unspecified; F17.210 Nicotine dependence, cigarettes, uncomplicated; Z98.51 Tubal ligation status; Z90.710 Acquired absence of both cervix and uterus; Z98.890 Other specified postprocedural states; Z79.84 Long term (current) use of oral hypoglycemic drugs; Z79.899 Other long term (current) drug therapy; Z72.89 Other problems related to lifestyle; Z88.0 Allergy status to penicillin; Z88.2 Allergy status to sulfonamides; Z88.8 Allergy status to other drugs, medicaments and biological substances
CPT/HCPCS: 10005; C1819